=== PATIENT | female | born 1945 | race Caucasian/White ===

== ENCOUNTER 2017-12-30 01:07 | Inpatient (IN) | payer OTHER ==
[~2017-12-30] VITALS: Ht 149.9 cm; Wt 60.0 kg
[2017-12-30] VITALS (26 sets, daily range): BP systolic 0–123; BP diastolic 0–82
[~2017-12-30 01:07] MED LIST: ASPI81CH43 PO; BUDE160A3; BUPR-4 PO; LISI-646 PO; MESA400T; PRO AIR; THYROXINE PO
[2017-12-30] MEDS ORDERED: KETOROLAC TROMETH 30 MG/ML 1ML VIAL IV ONE (02:15)
[2017-12-30] MEDS ORDERED: PANTOPRAZOLE 40 MG/10 ML VIAL IV ONE (02:15)
[2017-12-30 02:40] LABS: Eosinophils # (auto) 0.1 uL; Hemoglobin 15.2 g/dL (12.2-16.2); Lymphocytes # (auto) 0.8 uL; Monocytes # (auto) 0.4 uL; Neutrophils # (auto) 6.4 uL; Nucleated Red Blood Cells % 0.1 %; White Blood Cell 7.7 10^3/uL (4.4-10.8)
[2017-12-30 02:42] LABS: Basophils # (auto) 0 uL; Basophils % (auto) 0.5 % (0.0-2.0); Hematocrit 47.7 % (36.0-46.0); Lymphocytes % (auto) 10.7 % (10.0-50.0); Mean Corpuscular Hemoglobin 33.9 pg (28.0-32.0); Mean Corpuscular Hgb Conc. 31.8 g/dL (32.0-36.0); Mean Corpuscular Volume 106.6 fL (80.0-100.0); Monocytes % (auto) 5.6 % (0.0-12.0); Neutrophils % (auto) 82.2 % (37.0-80.0); Platelet Count (auto) 321 10^3/uL (140-450); Red Blood Cells 4.48 10^6/uL (4.0-5.20); Red Cell Distribution Width 16.2 % (11.8-14.3)
[2017-12-30 02:55] LABS: INR 0.92 (0.9-1.15); Partial Thromboplastin Time 24.3 sec (22.64-33.71)
[2017-12-30 03:01] LABS: Alanine Aminotransferase 34 U/L (13-56); Albumin 2.6 g/dL (3.4-5.0); Amylase 40 U/L (25-115); Anion Gap 8 (5-15); Aspartate Aminotransferase 27 U/L (15-37); BUN/Creatinine Ratio 28.4; Blood Urea Nitrogen 46 mg/dL (7-18); Carbon Dioxide 20 mmol/L (21-32); Chloride 114 mmol/L (98-107); GFR African American 40 mL/min; GFR Non-African American 33 mL/min; Glucose 104 mg/dL (74-106); Lipase 216 U/L (73-393); Magnesium 2.3 mg/dL (1.6-2.6); Potassium 4.9 mmol/L (3.5-5.1); Sodium 142 mmol/L (136-145)
[2017-12-30 03:06] LABS: Alkaline Phosphatase 96 U/L (45-117); Bilirubin, Total 0.4 mg/dL (0.2-1.0); Total Protein 6.7 g/dL (6.4-8.2)
[2017-12-30] MEDS ORDERED: GASTROGRAFIN 30 ML SOL ONE (03:24)
[2017-12-30] MEDS ORDERED: IOHEXOL 300 MG/ML 100ML BOTTLE IJ ONE (03:24)
[2017-12-30] MEDS ORDERED: HYDROmorphone HCL 2 MG/ML VL IV ONE (05:30)
[2017-12-30] MEDS ORDERED: SODIUM CHLORIDE 0.9% 1,000 ML IV SCH ×3 (06:30→17:15)
[2017-12-30] MEDS ORDERED: ACETAMINOPHEN 500 MG TAB PO PRN (06:30)
[2017-12-30] MEDS ORDERED: HYDROcodone-ACET 5/325MG TAB PO PRN (06:30)
[2017-12-30] MEDS ORDERED: LORazepam 2MG/ML-1ML VIAL IV PRN ×2 (06:30→20:30)
[2017-12-30] MEDS: metroNIDAZOLE 500MG/100ML 100 ML IV SCH ×2 (09:47→18:06)
[2017-12-30] MEDS ORDERED: PANTOPRAZOLE 40 MG/10 ML VIAL IV SCH (10:00)
[2017-12-30] MEDS: MORPHINE SULFATE 4 MG/ML SYR/VIAL IV PRN ×2 (11:18→15:22)
[2017-12-30] MEDS ORDERED: LEVOFLOXACIN 250MG 50 ML IV ONE (14:30)
[2017-12-30] MEDS: ONDANSETRON HCL 4 MG/2 ML VIAL IV PRN (14:45)
[2017-12-30] MEDS: ALBUMIN 25% 100 ML IV SCH ×2 (15:16→23:35)
[2017-12-30] MEDS ORDERED: SODIUM CHLORIDE 0.9% 500 ML IV ONE (16:15)
[2017-12-30] MEDS ORDERED: fentaNYL CITRATE 10 ML ONE (17:45)
[2017-12-30] MEDS ORDERED: HYDROmorphone HCL 2 MG/ML VL ONE (17:45)
[2017-12-30] MEDS ORDERED: MIDAZOLAM HCL 1MG/1ML-2 ML VIAL ONE (17:45)
[2017-12-30] MEDS ORDERED: ROCURONIUM 10MG/ML 10ML VIAL IV ONE (17:45)
[2017-12-30] MEDS ORDERED: ETOMIDATE (2MG/ML) 20ML VIAL IV ONE (17:45)
[2017-12-30] MEDS ORDERED: fentaNYL CITRATE 100 MCG/2 ML VL ONE (17:45)
[2017-12-30] MEDS ORDERED: SODIUM CHLORIDE LOCK 30 ML ONE (17:49)
[2017-12-30] MEDS ORDERED: NOREPINEPHRINE 8 MG/250ML KIT 250 ML IV ONE (18:51)
[2017-12-30] MEDS ORDERED: PHENYLEPHRINE HCL 10 MG/ML VL IV ONE (19:07)
[2017-12-30] MEDS ORDERED: SUCCINYLCHOLINE CHLORIDE 20 MG/ML 10ML VIAL IV ONE (19:07)
[2017-12-30] MEDS ORDERED: NEOMYCIN-BACITRACIN-POLYM 15GM TOP OINT TOP ONE (19:34)
[2017-12-30] MEDS ORDERED: CLINDAMYCIN 900MG IV 50 ML IV ONE (19:42)
[2017-12-30 20:06] LABS: Urine Bacteria NONE SEEN /hpf (None Seen); Urine Blood Negative /uL (Negative); Urine Hyaline Cast FEW /lpf (0 - 2); Urine WBC 1 /hpf (0 - 5)
[2017-12-30] MEDS: NOREPINEPHRINE 8 MG/250ML KIT 250 ML IV SCH (20:25)
[2017-12-30] MEDS ORDERED: ALBUTEROL SULF 2.5 MG/0.5ML(0.5%) NEB SOLN NEB PRN (20:30)
[2017-12-30] MEDS ORDERED: D5W/SOD CHL 0.45%/KCL 20MEQ 1,000 ML IV ONE (20:30)
[2017-12-30] MEDS: MIDAZOLAM DRIP 50 mg/50mL 50 ML IV SCH (20:55)
[2017-12-30] MEDS: PANTOPRAZOLE 80 MG in SODIUM CHL 0.9% 60 ML IV SCH (21:53)
[2017-12-30] MEDS: IPRATROPIUM BROM 0.5 MG/2.5ML INH SOL NEB SCH (22:00)
[2017-12-30] MEDS: LINEZOLID 600MG/300ML 300 ML IV SCH (23:33)
[2017-12-31] VITALS (93 sets, daily range): BP systolic 58–145; BP diastolic 31–105
[2017-12-31] MEDS: metroNIDAZOLE 500MG/100ML 100 ML IV SCH ×3 (01:00→15:04)
[2017-12-31] MEDS: ACETAMINOPHEN 650 MG RECT SUPP PR PRN ×2 (01:23→23:47)
[2017-12-31] MEDS: IPRATROPIUM BROM 0.5 MG/2.5ML INH SOL NEB SCH ×3 (02:00→19:16)
[2017-12-31] MEDS ORDERED: SODIUM BICARBONATE 8.4 % INJ 50ML VIAL IV ONE ×2 (02:45→04:30)
[2017-12-31] MEDS: NOREPINEPHRINE 8 MG/250ML KIT 250 ML IV SCH ×2 (02:46→11:48)
[2017-12-31 03:48] LABS: Basophils # (auto) 0 uL; Eosinophils # (auto) 0 uL; Monocytes # (auto) 0.4 uL; Nucleated Red Blood Cells % 0.1 %
[2017-12-31 03:50] LABS: Basophils % (auto) 0.2 % (0.0-2.0); Eosinophils % (auto) 0.3 % (0.0-7.0); Hematocrit 30.7 % (36.0-46.0); Lymphocytes # (auto) 0.6 uL; Lymphocytes % (auto) 7.4 % (10.0-50.0); Mean Corpuscular Hemoglobin 34.5 pg (28.0-32.0); Mean Corpuscular Hgb Conc. 32.7 g/dL (32.0-36.0); Mean Corpuscular Volume 105.4 fL (80.0-100.0); Monocytes % (auto) 5.7 % (0.0-12.0); Neutrophils # (auto) 6.6 uL; Neutrophils % (auto) 86.4 % (37.0-80.0); Platelet Count (auto) 212 10^3/uL (140-450); Red Blood Cells 2.91 10^6/uL (4.0-5.20); Red Cell Distribution Width 15.1 % (11.8-14.3); White Blood Cell 7.6 10^3/uL (4.4-10.8)
[2017-12-31 03:53] LABS: Albumin 2.5 g/dL (3.4-5.0); BUN/Creatinine Ratio 20.2; Calcium 6.2 mg/dL (8.5-10.1); Potassium 4.5 mmol/L (3.5-5.1)
[2017-12-31 03:55] LABS: Bilirubin, Total 0.3 mg/dL (0.2-1.0); Total Protein 4.4 g/dL (6.4-8.2)
[2017-12-31] MEDS: PANTOPRAZOLE 80 MG in SODIUM CHL 0.9% 60 ML IV SCH ×2 (04:37→17:44)
[2017-12-31] MEDS: ALBUMIN 25% 100 ML IV SCH (06:31)
[2017-12-31] MEDS ORDERED: SODIUM CHLORIDE 0.9% 2,000 ML IV ONE (09:30)
[2017-12-31] MEDS ORDERED: PANTOPRAZOLE 40 MG/10 ML VIAL IV SCH (10:00)
[2017-12-31] MEDS ORDERED: LEVOFLOXACIN 250MG 50 ML IV SCH (10:00)
[2017-12-31] MEDS: LEVOFLOXACIN 250MG 50 ML IV SCH (10:32)
[2017-12-31] MEDS: SODIUM CHLORIDE 0.9% 1,000 ML IV SCH ×2 (10:35→19:30)
[2017-12-31] MEDS: LINEZOLID 600MG/300ML 300 ML IV SCH ×2 (12:12→23:02)
[2017-12-31] MEDS: MORPHINE SULFATE 4 MG/ML SYR/VIAL IV PRN ×2 (14:45→21:09)
[2017-12-31 16:58] LABS: Creatinine, Urine 23 mg/dL (30.0-125.0); Sodium Urine 64 mmol/L (40-220)
[2017-12-31 17:23] LABS: Urine Amorphous Crystal FEW /hpf (None Seen); Urine Bacteria NONE SEEN /hpf (None Seen); Urine Blood 1+ /uL (Negative); Urine Hyaline Cast FEW /lpf (0 - 2); Urine Mucus FEW (None Seen); Urine Specific Gravity 1.022 (1.001-1.035); Urine WBC 4 /hpf (0 - 5)
[2017-12-31 18:29] LABS: Red Cell Distribution Width 15.7 % (11.8-14.3); White Blood Cell 8.5 10^3/uL (4.4-10.8)
[2017-12-31 18:32] LABS: Hematocrit 30.7 % (36.0-46.0); Hemoglobin 10.2 g/dL (12.2-16.2); Mean Corpuscular Hemoglobin 34.7 pg (28.0-32.0); Mean Corpuscular Hgb Conc. 33.2 g/dL (32.0-36.0); Mean Corpuscular Volume 104.6 fL (80.0-100.0); Platelet Count (auto) 188 10^3/uL (140-450); Red Blood Cells 2.94 10^6/uL (4.0-5.20)
[2017-12-31 18:36] LABS: INR 2.09 (0.9-1.15); Partial Thromboplastin Time 60.3 sec (22.64-33.71)
[2017-12-31 18:38] LABS: Basophils % (manual) 0 (0.0-2.0); Blast Cells 0; Eosinophils % (manual) 0 (0-7); Metamyelocytes % 0; Myelocytes % 0; Promyelocytes % 0; Reactive Lymphocytes 0
[2017-12-31 18:41] LABS: Albumin 2.1 g/dL (3.4-5.0); Magnesium 1.3 mg/dL (1.6-2.6); Potassium 4.1 mmol/L (3.5-5.1)
[2017-12-31 18:44] LABS: BUN/Creatinine Ratio 21.1
[2017-12-31 18:46] LABS: Bilirubin, Total 0.4 mg/dL (0.2-1.0); Total Protein 3.8 g/dL (6.4-8.2)
[2017-12-31 18:50] LABS: Bilirubin, Direct 0.2 mg/dL (0-0.2)
[2017-12-31 19:06] LABS: Band Neutrophils % (manual) 57; Lymphocytes % (manual) 2 (10.0-50.0); Monocytes % (manual) 4 (0-12)
[2017-12-31] MEDS: ALBUTEROL SULF 2.5 MG/0.5ML(0.5%) NEB SOLN HHN SCH (19:16)
[2017-12-31 19:18] LABS: Calcium 5.4 mg/dL (8.5-10.1)
[2017-12-31] MEDS ORDERED: CALCIUM GLUC 4.65meq/50ml D5AE 50 ML IV ONE ×2 (22:00→23:30)
[2017-12-31] MEDS: MAGNESIUM SULFATE 1GM/100ML 100 ML IV SCH ×2 (23:02→23:31)
[2017-12-31] MEDS: MIDAZOLAM DRIP 50 mg/50mL 50 ML IV SCH (23:52)
[2018-01-01] VITALS (107 sets, daily range): BP systolic 66–160; BP diastolic 36–77
[2018-01-01] MEDS: IPRATROPIUM BROM 0.5 MG/2.5ML INH SOL NEB SCH ×5 (00:20→18:26)
[2018-01-01] MEDS: ALBUTEROL SULF 2.5 MG/0.5ML(0.5%) NEB SOLN HHN SCH ×5 (00:20→18:26)
[2018-01-01] MEDS: MAGNESIUM SULFATE 1GM/100ML 100 ML IV SCH (00:34)
[2018-01-01 02:38] LABS: Basophils # (auto) 0 uL; Eosinophils # (auto) 0 uL; Hemoglobin 10.3 g/dL (12.2-16.2); Lymphocytes # (auto) 0.2 uL; Mean Corpuscular Volume 104.7 fL (80.0-100.0)
[2018-01-01 02:39] LABS: Basophils % (auto) 0.2 % (0.0-2.0); Eosinophils % (auto) 0.2 % (0.0-7.0); Hematocrit 31.3 % (36.0-46.0); Lymphocytes % (auto) 2.4 % (10.0-50.0); Mean Corpuscular Hemoglobin 34.4 pg (28.0-32.0); Mean Corpuscular Hgb Conc. 32.9 g/dL (32.0-36.0); Monocytes # (auto) 0.5 uL; Monocytes % (auto) 4.9 % (0.0-12.0); Neutrophils # (auto) 8.6 uL; Neutrophils % (auto) 92.3 % (37.0-80.0); Nucleated Red Blood Cells % 0.2 %; Platelet Count (auto) 195 10^3/uL (140-450); Red Blood Cells 2.99 10^6/uL (4.0-5.20); Red Cell Distribution Width 15.9 % (11.8-14.3); White Blood Cell 9.3 10^3/uL (4.4-10.8)
[2018-01-01 02:52] LABS: INR 1.65 (0.9-1.15); Partial Thromboplastin Time 58.7 sec (22.64-33.71); Prothrombin Time 18.1 sec (9.37-12.3)
[2018-01-01 03:03] LABS: BUN/Creatinine Ratio 19.9; Bilirubin, Direct 0.1 mg/dL (0-0.2); Bilirubin, Total 0.3 mg/dL (0.2-1.0); Calcium 6.1 mg/dL (8.5-10.1); Magnesium 2.4 mg/dL (1.6-2.6); Potassium 3.9 mmol/L (3.5-5.1); Total Protein 3.8 g/dL (6.4-8.2)
[2018-01-01] MEDS ORDERED: ADENOSINE 6 MG/2 ML INJ IV ONE ×2 (04:43→04:45)
[2018-01-01] MEDS: MORPHINE SULFATE 4 MG/ML SYR/VIAL IV PRN (04:45)
[2018-01-01] MEDS ORDERED: AMIODARONE HCL 900 MG in DEXTROSE 500 ML IV SCH (04:52)
[2018-01-01] MEDS ORDERED: AMIODARONE HCL 150 MG in D5W 5% 100 ML IV ONE (04:52)
[2018-01-01] MEDS ORDERED: AMIODARONE HCL 900 MG IV ONE (04:57)
[2018-01-01] MEDS ORDERED: AMIODARONE HCL (50 MG/ ML) 3 ML VIAL IV ONE (04:57)
[2018-01-01] MEDS: SODIUM CHLORIDE 0.9% 1,000 ML IV SCH (05:31)
[2018-01-01] MEDS: PANTOPRAZOLE 80 MG in SODIUM CHL 0.9% 60 ML IV SCH ×2 (06:41→17:18)
[2018-01-01] MEDS: NOREPINEPHRINE 8 MG/250ML KIT 250 ML IV SCH (06:50)
[2018-01-01] MEDS: metroNIDAZOLE 500MG/100ML 100 ML IV SCH ×3 (08:31→16:05)
[2018-01-01] MEDS: MIDAZOLAM DRIP 50 mg/50mL 50 ML IV SCH (09:22)
[2018-01-01] MEDS: LEVOFLOXACIN 250MG 50 ML IV SCH (09:22)
[2018-01-01] MEDS: LINEZOLID 600MG/300ML 300 ML IV SCH ×2 (10:30→22:10)
[2018-01-01] MEDS ORDERED: DIGOXIN (250MCG/ML) 2 ML AMPULE IV ONE ×2 (10:45→16:00)
[2018-01-01] MEDS: AMIODARONE HCL 900 MG in DEXTROSE 500 ML IV SCH (11:00)
[2018-01-01] MEDS: SOD CHL 0.45% 1,000 ML IV SCH (12:04)
[2018-01-01] MEDS ORDERED: SODIUM CHLORIDE 0.9% 1,000 ML IV ONE (17:00)
[2018-01-01] MEDS ORDERED: ALBUMIN 25% 100 ML IV ONE (17:08)
[2018-01-01] MEDS: ALBUMIN 25% 100 ML IV SCH (17:26)
[2018-01-01 21:00] LABS: Basophils # (auto) 0 uL; Basophils % (auto) 0.4 % (0.0-2.0); Eosinophils # (auto) 0 uL; Eosinophils % (auto) 0.3 % (0.0-7.0); Lymphocytes # (auto) 0.2 uL; Monocytes # (auto) 0.3 uL; Neutrophils # (auto) 7.1 uL; White Blood Cell 7.6 10^3/uL (4.4-10.8)
[2018-01-01 21:01] LABS: Hematocrit 28.1 % (36.0-46.0); Hemoglobin 9.3 g/dL (12.2-16.2); Mean Corpuscular Hemoglobin 34.3 pg (28.0-32.0); Mean Corpuscular Hgb Conc. 33.1 g/dL (32.0-36.0); Mean Corpuscular Volume 103.7 fL (80.0-100.0); Neutrophils % (auto) 92.3 % (37.0-80.0); Platelet Count (auto) 154 10^3/uL (140-450); Red Cell Distribution Width 15.4 % (11.8-14.3)
[2018-01-01 21:10] LABS: Albumin 2.6 g/dL (3.4-5.0); BUN/Creatinine Ratio 17.7; Bilirubin, Direct 0.2 mg/dL (0-0.2); Bilirubin, Total 0.4 mg/dL (0.2-1.0); Calcium 6.1 mg/dL (8.5-10.1); Magnesium 1.9 mg/dL (1.6-2.6); Potassium 3.8 mmol/L (3.5-5.1); Total Protein 4.3 g/dL (6.4-8.2)
[2018-01-01 21:25] LABS: INR 1.41 (0.9-1.15); Partial Thromboplastin Time 69.3 sec (22.64-33.71); Prothrombin Time 15.4 sec (9.37-12.3)
[2018-01-02] VITALS (105 sets, daily range): BP systolic 92–145; BP diastolic 38–84
[2018-01-02] MEDS: MORPHINE SULFATE 4 MG/ML SYR/VIAL IV PRN (00:05)
[2018-01-02] MEDS: metroNIDAZOLE 500MG/100ML 100 ML IV SCH ×3 (00:10→15:59)
[2018-01-02] MEDS: ALBUTEROL SULF 2.5 MG/0.5ML(0.5%) NEB SOLN HHN SCH ×4 (00:50→19:20)
[2018-01-02] MEDS: IPRATROPIUM BROM 0.5 MG/2.5ML INH SOL NEB SCH ×4 (00:50→19:20)
[2018-01-02] MEDS: ALBUMIN 25% 100 ML IV SCH ×2 (01:15→10:40)
[2018-01-02] MEDS: PANTOPRAZOLE 80 MG in SODIUM CHL 0.9% 60 ML IV SCH ×3 (03:00→15:59)
[2018-01-02] MEDS: SOD CHL 0.45% 1,000 ML IV SCH ×3 (05:00→16:45)
[2018-01-02] MEDS: AMIODARONE HCL 900 MG in DEXTROSE 500 ML IV SCH (05:00)
[2018-01-02 05:01] LABS: Hemoglobin 8.2 g/dL (12.2-16.2)
[2018-01-02 05:04] LABS: Hematocrit 24.7 % (36.0-46.0); Mean Corpuscular Hemoglobin 34.6 pg (28.0-32.0); Mean Corpuscular Hgb Conc. 33.3 g/dL (32.0-36.0); Mean Corpuscular Volume 103.7 fL (80.0-100.0); Platelet Count (auto) 125 10^3/uL (140-450); Red Blood Cells 2.38 10^6/uL (4.0-5.20)
[2018-01-02 05:16] LABS: Basophils % (manual) 0 (0.0-2.0); Blast Cells 0; Eosinophils % (manual) 0 (0-7); Metamyelocytes % 0; Myelocytes % 0; Reactive Lymphocytes 0
[2018-01-02 05:20] LABS: Calcium 6.5 mg/dL (8.5-10.1); Potassium 3.6 mmol/L (3.5-5.1)
[2018-01-02 05:22] LABS: BUN/Creatinine Ratio 16.6
[2018-01-02 05:28] LABS: INR 1.45 (0.9-1.15); Prothrombin Time 15.9 sec (9.37-12.3)
[2018-01-02 05:33] LABS: Partial Thromboplastin Time 82.6 sec (22.64-33.71)
[2018-01-02 05:50] LABS: Band Neutrophils % (manual) 6; Lymphocytes % (manual) 2 (10.0-50.0); Monocytes % (manual) 2 (0-12); Promyelocytes % 1
[2018-01-02] MEDS ORDERED: FUROSEMIDE 100 MG/10ML VIAL IV ONE (07:30)
[2018-01-02] MEDS ORDERED: FUROSEMIDE 20 MG/2 ML VIAL IV ONE (07:30)
[2018-01-02] MEDS: LEVOFLOXACIN 250MG 50 ML IV SCH (09:11)
[2018-01-02] MEDS: LINEZOLID 600MG/300ML 300 ML IV SCH ×2 (10:38→22:30)
[2018-01-02 13:54] LABS: Bilirubin, Direct 0.3 mg/dL (0-0.2)
[2018-01-02 14:08] LABS: Albumin 3.1 g/dL (3.4-5.0); Bilirubin, Total 0.5 mg/dL (0.2-1.0); Total Protein 4.7 g/dL (6.4-8.2)
[2018-01-02] MEDS: NOREPINEPHRINE 8 MG/250ML KIT 250 ML IV SCH (14:41)
[2018-01-02 17:10] LABS: Basophils # (auto) 0 uL; Eosinophils # (auto) 0 uL; Eosinophils % (auto) 0.3 % (0.0-7.0); Lymphocytes # (auto) 0.1 uL; Lymphocytes % (auto) 1.8 % (10.0-50.0); Monocytes # (auto) 0.3 uL
[2018-01-02 17:12] LABS: Basophils % (auto) 0.2 % (0.0-2.0); Hematocrit 23.7 % (36.0-46.0); Hemoglobin 8.1 g/dL (12.2-16.2); Mean Corpuscular Hemoglobin 34.9 pg (28.0-32.0); Mean Corpuscular Hgb Conc. 34.1 g/dL (32.0-36.0); Mean Corpuscular Volume 102.3 fL (80.0-100.0); Monocytes % (auto) 3.5 % (0.0-12.0); Neutrophils % (auto) 94.2 % (37.0-80.0); Platelet Count (auto) 116 10^3/uL (140-450); Red Blood Cells 2.32 10^6/uL (4.0-5.20); White Blood Cell 7.4 10^3/uL (4.4-10.8)
[2018-01-02] MEDS: SODIUM BICARBONATE 50ML VIAL 100 ML in D5W 5% 1,000 ML IV SCH (17:15)
[2018-01-02 17:33] LABS: INR 1.49 (0.9-1.15); Prothrombin Time 16.3 sec (9.37-12.3)
[2018-01-02 17:51] LABS: Partial Thromboplastin Time 76.3 sec (22.64-33.71)
[2018-01-02 18:36] LABS: Albumin 3.2 g/dL (3.4-5.0); BUN/Creatinine Ratio 16.1; Bilirubin, Direct 0.4 mg/dL (0-0.2); Bilirubin, Total 0.7 mg/dL (0.2-1.0); Calcium 6.4 mg/dL (8.5-10.1); Magnesium 1.7 mg/dL (1.6-2.6); Potassium 3.3 mmol/L (3.5-5.1); Total Protein 4.6 g/dL (6.4-8.2)
[2018-01-02 19:30] LABS: Fibrinogen 376.1 mg/dL (177-375)
[2018-01-02] MEDS: MIDAZOLAM DRIP 50 mg/50mL 50 ML IV SCH (20:55)
[2018-01-02] MEDS ORDERED: POTASSIUM CHL 20MEQ/100ML 100 ML IV ONE (21:15)
[2018-01-03] VITALS (77 sets, daily range): BP systolic 0–157; BP diastolic 0–87
[2018-01-03] MEDS: ALBUTEROL SULF 2.5 MG/0.5ML(0.5%) NEB SOLN HHN SCH ×4 (00:22→18:54)
[2018-01-03] MEDS: IPRATROPIUM BROM 0.5 MG/2.5ML INH SOL NEB SCH ×4 (00:22→18:54)
[2018-01-03] MEDS: MORPHINE SULFATE 8mg/ml INJ SDV IV PRN ×2 (02:00→15:54)
[2018-01-03] MEDS: SODIUM BICARBONATE 50ML VIAL 100 ML in D5W 5% 1,000 ML IV SCH (03:00)
[2018-01-03] MEDS: PANTOPRAZOLE 80 MG in SODIUM CHL 0.9% 60 ML IV SCH (04:30)
[2018-01-03 05:35] LABS: Basophils # (auto) 0 uL; Eosinophils # (auto) 0 uL; Eosinophils % (auto) 0.4 % (0.0-7.0); Hemoglobin 8.4 g/dL (12.2-16.2); Mean Corpuscular Hemoglobin 34.7 pg (28.0-32.0); Monocytes # (auto) 0.4 uL; Neutrophils # (auto) 8.2 uL; Nucleated Red Blood Cells % 0.1 %
[2018-01-03 05:36] LABS: Hematocrit 24.5 % (36.0-46.0); Lymphocytes # (auto) 0.1 uL; Lymphocytes % (auto) 1.6 % (10.0-50.0); Mean Corpuscular Hgb Conc. 34.3 g/dL (32.0-36.0); Mean Corpuscular Volume 101.2 fL (80.0-100.0); Monocytes % (auto) 4.2 % (0.0-12.0); Neutrophils % (auto) 93.8 % (37.0-80.0); Platelet Count (auto) 118 10^3/uL (140-450); Red Blood Cells 2.42 10^6/uL (4.0-5.20); White Blood Cell 8.7 10^3/uL (4.4-10.8)
[2018-01-03 05:44] LABS: INR 1.5 (0.9-1.15); Partial Thromboplastin Time 68.1 sec (22.64-33.71); Prothrombin Time 16.4 sec (9.37-12.3)
[2018-01-03 05:59] LABS: Albumin 2.6 g/dL (3.4-5.0); BUN/Creatinine Ratio 14.6; Bilirubin, Direct 0.4 mg/dL (0-0.2); Bilirubin, Total 0.8 mg/dL (0.2-1.0); Calcium 6.5 mg/dL (8.5-10.1); Magnesium 1.8 mg/dL (1.6-2.6); Total Protein 4.1 g/dL (6.4-8.2)
[2018-01-03] MEDS: POTASSIUM CHL 20MEQ/100ML 100 ML IV SCH ×2 (06:33→08:53)
[2018-01-03] MEDS: metroNIDAZOLE 500MG/100ML 100 ML IV SCH ×4 (08:53→23:51)
[2018-01-03] MEDS: LEVOFLOXACIN 250MG 50 ML IV SCH (09:22)
[2018-01-03] MEDS: LINEZOLID 600MG/300ML 300 ML IV SCH ×2 (10:34→22:14)
[2018-01-03] MEDS: SODIUM BICARBONATE 50ML VIAL 50 ML in SOD CHL 0.45% 1,000 ML IV SCH ×2 (13:25→23:17)
[2018-01-03] MEDS: NOREPINEPHRINE 8 MG/250ML KIT 250 ML IV SCH (14:41)
[2018-01-03] MEDS: MIDAZOLAM DRIP 50 mg/50mL 50 ML IV SCH (20:55)
[2018-01-03] MEDS: PANTOPRAZOLE 40 MG/10 ML VIAL IV SCH (22:14)
[2018-01-04] VITALS (60 sets, daily range): BP systolic 115–161; BP diastolic 49–87
[2018-01-04] MEDS: ALBUTEROL SULF 2.5 MG/0.5ML(0.5%) NEB SOLN HHN SCH ×4 (00:11→18:11)
[2018-01-04] MEDS: IPRATROPIUM BROM 0.5 MG/2.5ML INH SOL NEB SCH ×4 (00:11→18:11)
[2018-01-04 04:34] LABS: Hematocrit 29.4 % (36.0-46.0); Hemoglobin 9.9 g/dL (12.2-16.2); Mean Corpuscular Hemoglobin 33.8 pg (28.0-32.0); Mean Corpuscular Hgb Conc. 33.7 g/dL (32.0-36.0); Mean Corpuscular Volume 100.2 fL (80.0-100.0); Platelet Count (auto) 122 10^3/uL (140-450); Red Blood Cells 2.94 10^6/uL (4.0-5.20); Red Cell Distribution Width 14.8 % (11.8-14.3); White Blood Cell 7.7 10^3/uL (4.4-10.8)
[2018-01-04 04:37] LABS: Basophils % (manual) 0 (0.0-2.0); Blast Cells 0; Eosinophils % (manual) 0 (0-7); Metamyelocytes % 0; Myelocytes % 0; Promyelocytes % 0; Reactive Lymphocytes 0
[2018-01-04 04:40] LABS: INR 1.36 (0.9-1.15); Partial Thromboplastin Time 39.4 sec (23.78-33.04); Prothrombin Time 14.3 sec (9.27-12.13)
[2018-01-04 04:43] LABS: BUN/Creatinine Ratio 15.2; Calcium 6.8 mg/dL (8.5-10.1); Potassium 3.4 mmol/L (3.5-5.1)
[2018-01-04 04:54] LABS: Magnesium 1.6 mg/dL (1.6-2.6); Phosphorus 1.3 mg/dL (2.5-4.90)
[2018-01-04 05:23] LABS: Band Neutrophils % (manual) 5
[2018-01-04 05:24] LABS: Lymphocytes % (manual) 6 (10.0-50.0); Monocytes % (manual) 1 (0-12)
[2018-01-04] MEDS ORDERED: POTASSIUM CHL 20MEQ/100ML 100 ML IV ONE ×2 (05:45→09:15)
[2018-01-04] MEDS: metroNIDAZOLE 500MG/100ML 100 ML IV SCH ×3 (08:14→23:29)
[2018-01-04] MEDS: MORPHINE SULFATE 8mg/ml INJ SDV IV PRN ×3 (08:14→23:29)
[2018-01-04] MEDS: LEVOFLOXACIN 250MG 50 ML IV SCH (09:52)
[2018-01-04] MEDS: PANTOPRAZOLE 40 MG/10 ML VIAL IV SCH ×2 (09:57→22:04)
[2018-01-04] MEDS: SODIUM BICARBONATE 50ML VIAL 50 ML in SOD CHL 0.45% 1,000 ML IV SCH (10:50)
[2018-01-04] MEDS: LINEZOLID 600MG/300ML 300 ML IV SCH ×2 (10:51→22:04)
[2018-01-04] MEDS ORDERED: CALCIUM GLUC 4.65meq/50ml D5AE 50 ML IV ONE (11:30)
[2018-01-04] MEDS ORDERED: POTASSIUM PHOSPHATE 44 MEQ in D5W 5% 250 ML IV ONE (11:30)
[2018-01-04] MEDS: SODIUM BICARBONATE 50ML VIAL 50 ML in D5W/SOD CHL 0.45%/KCL 20MEQ 1,000 ML IV SCH ×3 (12:10→23:30)
[2018-01-04] MEDS: FUROSEMIDE 40 MG/4 ML VIAL IV SCH (12:28)
[2018-01-04] MEDS: CALCIUM GLUC 4.65meq/50ml D5AE 50 ML IV SCH ×2 (12:35→14:04)
[2018-01-04] MEDS: NOREPINEPHRINE 8 MG/250ML KIT 250 ML IV SCH (14:41)
[2018-01-04] MEDS: MIDAZOLAM DRIP 50 mg/50mL 50 ML IV SCH (20:55)
[2018-01-05] VITALS (101 sets, daily range): BP systolic 92–136; BP diastolic 33–78
[2018-01-05] MEDS: IPRATROPIUM BROM 0.5 MG/2.5ML INH SOL NEB SCH ×4 (00:32→18:47)
[2018-01-05] MEDS: ALBUTEROL SULF 2.5 MG/0.5ML(0.5%) NEB SOLN HHN SCH ×4 (00:33→18:47)
[2018-01-05] MEDS: METOPROLOL TARTRATE 1MG/1ML-5ML VIAL IV PRN ×3 (02:38→16:39)
[2018-01-05] MEDS: MORPHINE SULFATE 8mg/ml INJ SDV IV PRN ×4 (03:51→21:58)
[2018-01-05 04:22] LABS: Basophils # (auto) 0 uL; Eosinophils # (auto) 0.1 uL; Hemoglobin 10.1 g/dL (12.2-16.2); Lymphocytes # (auto) 0.3 uL; Monocytes # (auto) 0.6 uL; Nucleated Red Blood Cells % 0.2 %
[2018-01-05 04:24] LABS: Basophils % (auto) 0.2 % (0.0-2.0); Hematocrit 29.5 % (36.0-46.0); Lymphocytes % (auto) 3.8 % (10.0-50.0); Mean Corpuscular Hemoglobin 34.4 pg (28.0-32.0); Mean Corpuscular Hgb Conc. 34.4 g/dL (32.0-36.0); Mean Corpuscular Volume 100.1 fL (80.0-100.0); Monocytes % (auto) 8.6 % (0.0-12.0); Neutrophils # (auto) 6.5 uL; Neutrophils % (auto) 86.4 % (37.0-80.0); Platelet Count (auto) 119 10^3/uL (140-450); Red Blood Cells 2.95 10^6/uL (4.0-5.20); White Blood Cell 7.5 10^3/uL (4.4-10.8)
[2018-01-05 04:35] LABS: Magnesium 1.5 mg/dL (1.6-2.6); Phosphorus 3.3 mg/dL (2.5-4.90); Potassium 4.4 mmol/L (3.5-5.1)
[2018-01-05] MEDS: metroNIDAZOLE 500MG/100ML 100 ML IV SCH ×2 (09:10→18:10)
[2018-01-05] MEDS: PANTOPRAZOLE 40 MG/10 ML VIAL IV SCH ×2 (10:02→21:58)
[2018-01-05] MEDS: FUROSEMIDE 40 MG/4 ML VIAL IV SCH (10:02)
[2018-01-05] MEDS: LEVOFLOXACIN 250MG 50 ML IV SCH (10:15)
[2018-01-05] MEDS ORDERED: MAGNESIUM SULFATE 1GM/100ML 100 ML IV SCH (12:00)
[2018-01-05] MEDS: MAGNESIUM SULFATE 1GM/100ML 100 ML IV SCH ×3 (13:21→15:51)
[2018-01-05] MEDS: NOREPINEPHRINE 8 MG/250ML KIT 250 ML IV SCH (14:41)
[2018-01-05] MEDS: LINEZOLID 600MG/300ML 300 ML IV SCH ×2 (15:07→22:01)
[2018-01-05] MEDS: MIDAZOLAM DRIP 50 mg/50mL 50 ML IV SCH (20:55)
[2018-01-05] MEDS: ONDANSETRON HCL 4 MG/2 ML VIAL IV PRN (21:58)
[2018-01-05] MEDS: SODIUM BICARBONATE 50ML VIAL 50 ML in D5W/SOD CHL 0.45%/KCL 20MEQ 1,000 ML IV SCH (22:01)
[2018-01-06] VITALS (81 sets, daily range): BP systolic 101–154; BP diastolic 45–72
[2018-01-06] MEDS: IPRATROPIUM BROM 0.5 MG/2.5ML INH SOL NEB SCH ×4 (00:24→18:23)
[2018-01-06] MEDS: ALBUTEROL SULF 2.5 MG/0.5ML(0.5%) NEB SOLN HHN SCH ×4 (00:24→18:23)
[2018-01-06] MEDS: metroNIDAZOLE 500MG/100ML 100 ML IV SCH ×4 (00:27→23:57)
[2018-01-06 03:56] LABS: Basophils # (auto) 0 uL; Basophils % (auto) 0.2 % (0.0-2.0); Eosinophils # (auto) 0.1 uL; Lymphocytes # (auto) 0.4 uL; Monocytes # (auto) 0.7 uL; Platelet Count (auto) 107 10^3/uL (140-450); Red Blood Cells 2.94 10^6/uL (4.0-5.20)
[2018-01-06 03:58] LABS: Eosinophils % (auto) 0.9 % (0.0-7.0); Hematocrit 29.4 % (36.0-46.0); Lymphocytes % (auto) 5.1 % (10.0-50.0); Mean Corpuscular Hgb Conc. 34.1 g/dL (32.0-36.0); Mean Corpuscular Volume 99.9 fL (80.0-100.0); Monocytes % (auto) 8.8 % (0.0-12.0); Neutrophils # (auto) 6.4 uL; Red Cell Distribution Width 14.6 % (11.8-14.3); White Blood Cell 7.5 10^3/uL (4.4-10.8)
[2018-01-06 04:12] LABS: Potassium 4.3 mmol/L (3.5-5.1)
[2018-01-06 04:16] LABS: BUN/Creatinine Ratio 14.9; Calcium 7.2 mg/dL (8.5-10.1); Magnesium 1.8 mg/dL (1.6-2.6)
[2018-01-06] MEDS: SODIUM BICARBONATE 50ML VIAL 50 ML in D5W/SOD CHL 0.45%/KCL 20MEQ 1,000 ML IV SCH ×3 (06:00→18:02)
[2018-01-06] MEDS: MORPHINE SULFATE 8mg/ml INJ SDV IV PRN ×3 (06:01→16:49)
[2018-01-06] MEDS: LEVOFLOXACIN 250MG 50 ML IV SCH (08:34)
[2018-01-06] MEDS ORDERED: GASTROGRAFIN 30 ML SOL ONE ×2 (09:31→10:42)
[2018-01-06] MEDS: FUROSEMIDE 40 MG/4 ML VIAL IV SCH ×3 (10:31→17:49)
[2018-01-06] MEDS: PANTOPRAZOLE 40 MG/10 ML VIAL IV SCH ×2 (10:31→22:07)
[2018-01-06] MEDS: LINEZOLID 600MG/300ML 300 ML IV SCH (10:31)
[2018-01-06] MEDS: POTASSIUM CHL 20MEQ/100ML 100 ML IV SCH ×2 (12:31→15:00)
[2018-01-06] MEDS: NOREPINEPHRINE 8 MG/250ML KIT 250 ML IV SCH (14:41)
[2018-01-07] VITALS (85 sets, daily range): BP systolic 90–161; BP diastolic 31–91
[2018-01-07] MEDS: ALBUTEROL SULF 2.5 MG/0.5ML(0.5%) NEB SOLN HHN SCH ×3 (00:02→18:16)
[2018-01-07] MEDS: IPRATROPIUM BROM 0.5 MG/2.5ML INH SOL NEB SCH ×3 (00:02→18:16)
[2018-01-07] MEDS: MORPHINE SULFATE 8mg/ml INJ SDV IV PRN ×2 (01:05→08:47)
[2018-01-07] MEDS: ONDANSETRON HCL 4 MG/2 ML VIAL IV PRN (01:05)
[2018-01-07 04:10] LABS: Basophils # (auto) 0 uL; Eosinophils # (auto) 0 uL; Eosinophils % (auto) 0.5 % (0.0-7.0); Lymphocytes # (auto) 0.4 uL; Lymphocytes % (auto) 4.5 % (10.0-50.0); Monocytes # (auto) 0.6 uL; Neutrophils # (auto) 7.1 uL; Red Cell Distribution Width 14.4 % (11.8-14.3); White Blood Cell 8.1 10^3/uL (4.4-10.8)
[2018-01-07 04:13] LABS: Basophils % (auto) 0.1 % (0.0-2.0); Hematocrit 30.2 % (36.0-46.0); Hemoglobin 10.3 g/dL (12.2-16.2); Mean Corpuscular Hemoglobin 34.6 pg (28.0-32.0); Mean Corpuscular Hgb Conc. 34.2 g/dL (32.0-36.0); Mean Corpuscular Volume 100.9 fL (80.0-100.0); Monocytes % (auto) 7.2 % (0.0-12.0); Neutrophils % (auto) 87.7 % (37.0-80.0); Platelet Count (auto) 91 10^3/uL (140-450); Red Blood Cells 2.99 10^6/uL (4.0-5.20)
[2018-01-07 04:21] LABS: Albumin 1.8 g/dL (3.4-5.0); BUN/Creatinine Ratio 14.3; Bilirubin, Total 0.5 mg/dL (0.2-1.0); Calcium 7.3 mg/dL (8.5-10.1); Magnesium 1.7 mg/dL (1.6-2.6); Phosphorus 1.9 mg/dL (2.5-4.90); Potassium 4.7 mmol/L (3.5-5.1); Total Protein 3.8 g/dL (6.4-8.2)
[2018-01-07] MEDS: FUROSEMIDE 40 MG/4 ML VIAL IV SCH ×2 (06:28→18:13)
[2018-01-07] MEDS: SODIUM BICARBONATE 50ML VIAL 50 ML in D5W/SOD CHL 0.45%/KCL 20MEQ 1,000 ML IV SCH (07:41)
[2018-01-07] MEDS: metroNIDAZOLE 500MG/100ML 100 ML IV SCH ×3 (08:05→23:43)
[2018-01-07] MEDS: MIDAZOLAM DRIP 50 mg/50mL 50 ML IV SCH (08:05)
[2018-01-07] MEDS: LEVOFLOXACIN 250MG 50 ML IV SCH (08:47)
[2018-01-07] MEDS: PANTOPRAZOLE 40 MG/10 ML VIAL IV SCH ×2 (10:09→21:48)
[2018-01-07] MEDS ORDERED: SODIUM PHOSPHATES 40 MEQ in D5W 5% 250 ML IV ONE (11:30)
[2018-01-07] MEDS: MAGNESIUM SULFATE 1GM/100ML 100 ML IV SCH ×2 (12:43→14:55)
[2018-01-07] MEDS: NOREPINEPHRINE 8 MG/250ML KIT 250 ML IV SCH (14:41)
[2018-01-07] MEDS ORDERED: LIDOCAINE 1% (LOCAL ANESTH.) PF 5ml SDV ONE (15:05)
[2018-01-07] MEDS ORDERED: LIDOCAINE HCL 1 % PF INJ 2ML AMP IJ ONE (15:15)
[2018-01-07] MEDS ORDERED: LIDOCAINE 1% (LOCAL ANESTH.) PF 5ml SDV IJ ONE (15:30)
[2018-01-07] MEDS: methylPREDNISolone SOD SUCC 40 MG/ML VL IV SCH (21:48)
[2018-01-08] VITALS (95 sets, daily range): BP systolic 91–140; BP diastolic 39–126
[2018-01-08] MEDS: ALBUTEROL SULF 2.5 MG/0.5ML(0.5%) NEB SOLN HHN SCH ×4 (00:18→18:30)
[2018-01-08] MEDS: IPRATROPIUM BROM 0.5 MG/2.5ML INH SOL NEB SCH ×4 (00:19→18:30)
[2018-01-08 03:28] LABS: Hematocrit 30.6 % (36.0-46.0); Hemoglobin 10.5 g/dL (12.2-16.2); Mean Corpuscular Hgb Conc. 34.2 g/dL (32.0-36.0); Mean Corpuscular Volume 99.6 fL (80.0-100.0); Platelet Count (auto) 116 10^3/uL (140-450); Red Blood Cells 3.08 10^6/uL (4.0-5.20); Red Cell Distribution Width 14.3 % (11.8-14.3); White Blood Cell 9.5 10^3/uL (4.4-10.8)
[2018-01-08 03:45] LABS: Basophils % (manual) 0 (0.0-2.0); Blast Cells 0; Eosinophils % (manual) 0 (0-7); Metamyelocytes % 0; Myelocytes % 0; Promyelocytes % 0; Reactive Lymphocytes 0
[2018-01-08 03:47] LABS: BUN/Creatinine Ratio 15.4; Calcium 7.6 mg/dL (8.5-10.1); Magnesium 2.1 mg/dL (1.6-2.6); Potassium 4.7 mmol/L (3.5-5.1)
[2018-01-08 04:06] LABS: Band Neutrophils % (manual) 4; Lymphocytes % (manual) 2 (10.0-50.0); Monocytes % (manual) 3 (0-12)
[2018-01-08] MEDS: FUROSEMIDE 40 MG/4 ML VIAL IV SCH ×2 (06:13→17:58)
[2018-01-08] MEDS: metroNIDAZOLE 500MG/100ML 100 ML IV SCH ×2 (08:03→16:16)
[2018-01-08] MEDS: LEVOFLOXACIN 250MG 50 ML IV SCH (08:42)
[2018-01-08] MEDS: MORPHINE SULFATE 8mg/ml INJ SDV IV PRN (09:41)
[2018-01-08] MEDS: PANTOPRAZOLE 40 MG/10 ML VIAL IV SCH ×2 (10:20→21:37)
[2018-01-08] MEDS: methylPREDNISolone SOD SUCC 40 MG/ML VL IV SCH ×2 (10:20→21:38)
[2018-01-08] MEDS: NOREPINEPHRINE 8 MG/250ML KIT 250 ML IV SCH (16:16)
[2018-01-08] MEDS ORDERED: prednisoLONE ACETATE 1% OPTH SUSP 5ML LEFTEYE SCH (22:00)
[2018-01-09] VITALS (61 sets, daily range): BP systolic 93–144; BP diastolic 33–99
[2018-01-09] MEDS: IPRATROPIUM BROM 0.5 MG/2.5ML INH SOL NEB SCH ×4 (00:27→19:25)
[2018-01-09] MEDS: ALBUTEROL SULF 2.5 MG/0.5ML(0.5%) NEB SOLN HHN SCH ×4 (00:27→19:25)
[2018-01-09 04:03] LABS: Hematocrit 28.4 % (36.0-46.0); Hemoglobin 9.6 g/dL (12.2-16.2); Mean Corpuscular Hemoglobin 33.5 pg (28.0-32.0); Mean Corpuscular Hgb Conc. 33.7 g/dL (32.0-36.0); Mean Corpuscular Volume 99.4 fL (80.0-100.0); Platelet Count (auto) 108 10^3/uL (140-450); Red Blood Cells 2.86 10^6/uL (4.0-5.20); Red Cell Distribution Width 14.4 % (11.8-14.3); White Blood Cell 8.8 10^3/uL (4.4-10.8)
[2018-01-09 04:12] LABS: BUN/Creatinine Ratio 20.2; Calcium 7.7 mg/dL (8.5-10.1); Magnesium 2.1 mg/dL (1.6-2.6); Phosphorus 4.4 mg/dL (2.5-4.90); Potassium 4.6 mmol/L (3.5-5.1)
[2018-01-09 04:26] LABS: Basophils % (manual) 0 (0.0-2.0); Blast Cells 0; Eosinophils % (manual) 0 (0-7); Lymphocytes % (manual) 0 (10.0-50.0); Metamyelocytes % 0; Myelocytes % 0; Promyelocytes % 0; Reactive Lymphocytes 0
[2018-01-09 04:52] LABS: Band Neutrophils % (manual) 5; Monocytes % (manual) 1 (0-12)
[2018-01-09] MEDS: FUROSEMIDE 40 MG/4 ML VIAL IV SCH (06:00)
[2018-01-09] MEDS: MORPHINE SULFATE 8mg/ml INJ SDV IV PRN ×2 (08:12→16:26)
[2018-01-09] MEDS: metroNIDAZOLE 500MG/100ML 100 ML IV SCH ×4 (08:12→23:52)
[2018-01-09] MEDS: LEVOFLOXACIN 250MG 50 ML IV SCH (10:02)
[2018-01-09] MEDS: methylPREDNISolone SOD SUCC 40 MG/ML VL IV SCH ×2 (10:02→22:00)
[2018-01-09] MEDS: PANTOPRAZOLE 40 MG/10 ML VIAL IV SCH ×2 (10:02→22:00)
[2018-01-09] MEDS ORDERED: TPN PER PHARMACY 0 ML IV SCH (10:30)
[2018-01-09] MEDS ORDERED: DEXTROSE (50%) 50ML SYRG IV SCH (12:15)
[2018-01-09 13:02] LABS: Albumin 1.8 g/dL (3.4-5.0); Pre Albumin 21.2 mg/dL (20.0-40.0)
[2018-01-09] MEDS: SODIUM CHLORIDE 0.9% 1,000 ML IV SCH (15:41)
[2018-01-09] MEDS: NOREPINEPHRINE 8 MG/250ML KIT 250 ML IV SCH (15:41)
[2018-01-09] MEDS: TPN PER PHARMACY IV NR ×8 (20:00)
[2018-01-09] MEDS: ACCU-CHEK COMFORT CURVE STRIP VI SCH (23:53)
[2018-01-09] MEDS: InsuLIN REG 1unit/0.01ml Soln (100units/ml) SC SCH (23:53)
[2018-01-10] VITALS (39 sets, daily range): BP systolic 69–129; BP diastolic 35–72
[2018-01-10] MEDS: ALBUTEROL SULF 2.5 MG/0.5ML(0.5%) NEB SOLN HHN SCH ×4 (00:02→18:52)
[2018-01-10] MEDS: IPRATROPIUM BROM 0.5 MG/2.5ML INH SOL NEB SCH ×4 (00:02→18:52)
[2018-01-10 04:39] LABS: Basophils # (auto) 0 uL; Eosinophils # (auto) 0 uL; Hematocrit 25.5 % (36.0-46.0); Hemoglobin 8.7 g/dL (12.2-16.2); Lymphocytes # (auto) 0.3 uL; Mean Corpuscular Hemoglobin 34.3 pg (28.0-32.0); Nucleated Red Blood Cells % 0.1 %; Red Blood Cells 2.54 10^6/uL (4.0-5.20)
[2018-01-10 04:41] LABS: Basophils % (auto) 0.1 % (0.0-2.0); Lymphocytes % (auto) 2.6 % (10.0-50.0); Mean Corpuscular Hgb Conc. 34.1 g/dL (32.0-36.0); Mean Corpuscular Volume 100.5 fL (80.0-100.0); Monocytes # (auto) 0.3 uL; Monocytes % (auto) 2.5 % (0.0-12.0); Neutrophils # (auto) 10.3 uL; Neutrophils % (auto) 94.8 % (37.0-80.0); White Blood Cell 10.8 10^3/uL (4.4-10.8)
[2018-01-10 04:45] LABS: Platelet Count (auto) 97 10^3/uL (140-450)
[2018-01-10 04:58] LABS: Albumin 1.7 g/dL (3.4-5.0); Bilirubin, Total 0.4 mg/dL (0.2-1.0); Calcium 7.1 mg/dL (8.5-10.1); Magnesium 2.2 mg/dL (1.6-2.6); Phosphorus 3.7 mg/dL (2.5-4.90); Potassium 3.8 mmol/L (3.5-5.1); Total Protein 3.6 g/dL (6.4-8.2)
[2018-01-10] MEDS: InsuLIN REG 1unit/0.01ml Soln (100units/ml) SC SCH ×4 (06:00→23:43)
[2018-01-10] MEDS: ACCU-CHEK COMFORT CURVE STRIP VI SCH ×4 (06:00→23:43)
[2018-01-10] MEDS: SODIUM CHLORIDE 0.9% 1,000 ML IV SCH (08:08)
[2018-01-10] MEDS: TPN PER PHARMACY IV NR ×8 (08:30)
[2018-01-10] MEDS: metroNIDAZOLE 500MG/100ML 100 ML IV SCH ×3 (09:11→23:34)
[2018-01-10] MEDS: methylPREDNISolone SOD SUCC 40 MG/ML VL IV SCH ×2 (09:47→21:19)
[2018-01-10] MEDS: PANTOPRAZOLE 40 MG/10 ML VIAL IV SCH ×2 (09:47→21:19)
[2018-01-10] MEDS: LEVOFLOXACIN 250MG 50 ML IV SCH (09:47)
[2018-01-10] MEDS: BUDESONIDE (INHALATION) 0.5 MG/2 ML NEB NEB SCH ×2 (11:46→18:52)
[2018-01-10] MEDS: MORPHINE SULFATE 8mg/ml INJ SDV IV PRN ×2 (12:30→20:00)
[2018-01-10] MEDS: NOREPINEPHRINE 8 MG/250ML KIT 250 ML IV SCH (13:56)
[2018-01-10] MEDS ORDERED: SODIUM CHLORIDE 0.9% 1,000 ML IV SCH (20:00)
[2018-01-10] MEDS ORDERED: TPN PER PHARMACY IV NR ×10 (20:00)
[2018-01-11] VITALS (96 sets, daily range): BP systolic 75–142; BP diastolic 28–106
[2018-01-11] MEDS: IPRATROPIUM BROM 0.5 MG/2.5ML INH SOL NEB SCH ×4 (00:02→18:40)
[2018-01-11] MEDS: ALBUTEROL SULF 2.5 MG/0.5ML(0.5%) NEB SOLN HHN SCH ×4 (00:02→18:40)
[2018-01-11] MEDS: MORPHINE SULFATE 8mg/ml INJ SDV IV PRN (00:51)
[2018-01-11 04:36] LABS: Albumin 1.7 g/dL (3.4-5.0); BUN/Creatinine Ratio 33.9; Bilirubin, Total 0.2 mg/dL (0.2-1.0); Calcium 6.8 mg/dL (8.5-10.1); Magnesium 2.1 mg/dL (1.6-2.6); Phosphorus 2.7 mg/dL (2.5-4.90); Potassium 3.8 mmol/L (3.5-5.1); Pre Albumin 23.5 mg/dL (20.0-40.0); Total Protein 3.8 g/dL (6.4-8.2)
[2018-01-11] MEDS: InsuLIN REG 1unit/0.01ml Soln (100units/ml) SC SCH ×3 (05:23→17:47)
[2018-01-11] MEDS: ACCU-CHEK COMFORT CURVE STRIP VI SCH ×3 (05:23→17:46)
[2018-01-11] MEDS: BUDESONIDE (INHALATION) 0.5 MG/2 ML NEB NEB SCH ×2 (06:21→22:00)
[2018-01-11] MEDS: metroNIDAZOLE 500MG/100ML 100 ML IV SCH ×2 (08:41→16:02)
[2018-01-11] MEDS: LEVOFLOXACIN 250MG 50 ML IV SCH (08:41)
[2018-01-11] MEDS: PANTOPRAZOLE 40 MG/10 ML VIAL IV SCH ×2 (09:32→22:14)
[2018-01-11] MEDS: methylPREDNISolone SOD SUCC 40 MG/ML VL IV SCH ×2 (09:32→22:14)
[2018-01-11] MEDS: SODIUM CHLORIDE 0.9% 1,000 ML IV SCH (12:42)
[2018-01-11] MEDS: NOREPINEPHRINE 8 MG/250ML KIT 250 ML IV SCH ×2 (14:41→20:17)
[2018-01-11] MEDS ORDERED: FAT EMULSION IV NR ×9 (20:00)
[2018-01-11] MEDS ORDERED: POTASSIUM ACETATE IV NR ×9 (20:00)
[2018-01-11] MEDS ORDERED: [UNRECOGNIZED DRUG - OTHER] IV NR ×9 (20:00)
[2018-01-11] MEDS ORDERED: SODIUM PHOSPHATES IV NR ×9 (20:00)
[2018-01-12] VITALS (106 sets, daily range): BP systolic 73–139; BP diastolic 28–85
[2018-01-12] MEDS: metroNIDAZOLE 500MG/100ML 100 ML IV SCH ×3 (00:07→16:00)
[2018-01-12] MEDS: ACCU-CHEK COMFORT CURVE STRIP VI SCH ×4 (00:10→18:26)
[2018-01-12] MEDS: IPRATROPIUM BROM 0.5 MG/2.5ML INH SOL NEB SCH ×4 (00:16→18:47)
[2018-01-12] MEDS: ALBUTEROL SULF 2.5 MG/0.5ML(0.5%) NEB SOLN HHN SCH ×4 (00:16→18:47)
[2018-01-12 04:10] LABS: Basophils # (auto) 0 uL; Basophils % (auto) 0.1 % (0.0-2.0); Eosinophils # (auto) 0 uL; Hemoglobin 8.9 g/dL (12.2-16.2); Lymphocytes # (auto) 0.2 uL; Lymphocytes % (auto) 1.9 % (10.0-50.0); Monocytes # (auto) 0.4 uL; Neutrophils # (auto) 10.7 uL; Nucleated Red Blood Cells % 0.1 %
[2018-01-12 04:11] LABS: Eosinophils % (auto) 0.3 % (0.0-7.0); Hematocrit 26.7 % (36.0-46.0); Mean Corpuscular Hemoglobin 34.3 pg (28.0-32.0); Mean Corpuscular Hgb Conc. 33.4 g/dL (32.0-36.0); Mean Corpuscular Volume 102.8 fL (80.0-100.0); Monocytes % (auto) 3.6 % (0.0-12.0); Neutrophils % (auto) 94.1 % (37.0-80.0); Platelet Count (auto) 82 10^3/uL (140-450); Red Blood Cells 2.59 10^6/uL (4.0-5.20); Red Cell Distribution Width 14.2 % (11.8-14.3); White Blood Cell 11.3 10^3/uL (4.4-10.8)
[2018-01-12 04:36] LABS: Albumin 1.8 g/dL (3.4-5.0); BUN/Creatinine Ratio 42.7; Bilirubin, Total 0.3 mg/dL (0.2-1.0); Calcium 7.1 mg/dL (8.5-10.1); Magnesium 2.2 mg/dL (1.6-2.6); Phosphorus 2.6 mg/dL (2.5-4.90); Potassium 4.6 mmol/L (3.5-5.1); Total Protein 3.8 g/dL (6.4-8.2)
[2018-01-12] MEDS: SODIUM CHLORIDE 0.9% 1,000 ML IV SCH (05:25)
[2018-01-12] MEDS: InsuLIN REG 1unit/0.01ml Soln (100units/ml) SC SCH ×4 (06:10→18:00)
[2018-01-12] MEDS: NOREPINEPHRINE 8 MG/250ML KIT 250 ML IV SCH (08:12)
[2018-01-12] MEDS: LEVOFLOXACIN 250MG 50 ML IV SCH (09:02)
[2018-01-12] MEDS: methylPREDNISolone SOD SUCC 40 MG/ML VL IV SCH ×2 (10:00→21:57)
[2018-01-12] MEDS: PANTOPRAZOLE 40 MG/10 ML VIAL IV SCH ×2 (10:00→21:57)
[2018-01-12] MEDS ORDERED: VANCOMYCIN PER PHARMACY 0 MG IV ONE (10:15)
[2018-01-12] MEDS ORDERED: FUROSEMIDE 40 MG/4 ML VIAL IV ONE (10:30)
[2018-01-12] MEDS ORDERED: VANCOMYCIN 1GM/250ML 250 ML IV ONE (10:30)
[2018-01-12] MEDS ORDERED: PHENYLEPHRINE IV 250 ML IV ONE ×2 (10:44→16:34)
[2018-01-12] MEDS: PHENYLEPHRINE INJ 20 MG in SODIUM CHL 0.9% 250 ML IV SCH ×2 (11:02→16:41)
[2018-01-12] MEDS ORDERED: ETOMIDATE (2MG/ML) 20ML VIAL IV ONE ×2 (11:07→11:15)
[2018-01-12] MEDS ORDERED: SUCCINYLCHOLINE CHLORIDE 20 MG/ML 10ML VIAL IV ONE (11:15)
[2018-01-12] MEDS: fentaNYL Drip 2500mCg/250mlNS 250 ML IV SCH (11:16)
[2018-01-12] MEDS ORDERED: VANCOMYCIN PER PHARMACY 0 MG IV SCH (12:00)
[2018-01-12] MEDS: CEFEPIME HYDROCHLORIDE 2 GM in SODIUM CHL 0.9% 50 ML IV SCH (12:00)
[2018-01-12] MEDS: BUDESONIDE (INHALATION) 0.5 MG/2 ML NEB NEB SCH (12:21)
[2018-01-12] MEDS: ACETYLCYSTEINE 20%(200MG/ML) SOL 4ML NEB SCH ×2 (12:24→18:48)
[2018-01-12] MEDS ORDERED: TPN PER PHARMACY IV NR ×11 (20:00)
[2018-01-12] MEDS ORDERED: PRAMIPEXOLE DIHYDROCHLORIDE MO 0.25 MG TAB PO SCH (22:00)
[2018-01-13] VITALS (102 sets, daily range): BP systolic 63–155; BP diastolic 33–121
[2018-01-13] MEDS: ACCU-CHEK COMFORT CURVE STRIP VI SCH ×4 (00:20→18:00)
[2018-01-13] MEDS: InsuLIN REG 1unit/0.01ml Soln (100units/ml) SC SCH ×4 (00:20→18:00)
[2018-01-13] MEDS: metroNIDAZOLE 500MG/100ML 100 ML IV SCH ×3 (00:20→16:07)
[2018-01-13] MEDS: ALBUTEROL SULF 2.5 MG/0.5ML(0.5%) NEB SOLN HHN SCH ×4 (00:25→18:50)
[2018-01-13] MEDS: BUDESONIDE (INHALATION) 0.5 MG/2 ML NEB NEB SCH ×2 (00:25→05:50)
[2018-01-13] MEDS: IPRATROPIUM BROM 0.5 MG/2.5ML INH SOL NEB SCH ×4 (00:25→18:50)
[2018-01-13] MEDS: ACETYLCYSTEINE 20%(200MG/ML) SOL 4ML NEB SCH ×4 (00:27→18:50)
[2018-01-13] MEDS: MIDAZOLAM HCL 1MG/1ML-2 ML VIAL IV PRN ×2 (01:00→07:16)
[2018-01-13] MEDS: PHENYLEPHRINE INJ 20 MG in SODIUM CHL 0.9% 250 ML IV SCH ×3 (03:32→17:01)
[2018-01-13 03:38] LABS: Basophils # (auto) 0 uL; Eosinophils # (auto) 0 uL; Hemoglobin 8.1 g/dL (12.2-16.2); Lymphocytes # (auto) 0.3 uL; Nucleated Red Blood Cells % 0.1 %; Platelet Count (auto) 53 10^3/uL (140-450); Red Cell Distribution Width 14.2 % (11.8-14.3)
[2018-01-13 03:42] LABS: Hematocrit 24.3 % (36.0-46.0); Lymphocytes % (auto) 2.6 % (10.0-50.0); Mean Corpuscular Hemoglobin 33.8 pg (28.0-32.0); Mean Corpuscular Hgb Conc. 33.3 g/dL (32.0-36.0); Mean Corpuscular Volume 101.2 fL (80.0-100.0); Monocytes # (auto) 0.5 uL; Monocytes % (auto) 4.2 % (0.0-12.0); Neutrophils % (auto) 93.2 % (37.0-80.0); White Blood Cell 10.7 10^3/uL (4.4-10.8)
[2018-01-13] MEDS: NOREPINEPHRINE 8 MG/250ML KIT 250 ML IV SCH ×2 (03:44→17:01)
[2018-01-13 04:08] LABS: Albumin 1.5 g/dL (3.4-5.0); BUN/Creatinine Ratio 44.8; Bilirubin, Total 0.4 mg/dL (0.2-1.0); Magnesium 2.3 mg/dL (1.6-2.6); Phosphorus 2.7 mg/dL (2.5-4.90); Potassium 4.7 mmol/L (3.5-5.1); Total Protein 3.7 g/dL (6.4-8.2)
[2018-01-13 04:12] LABS: Partial Thromboplastin Time 27.8 sec (23.78-33.04); Prothrombin Time 10.7 sec (9.27-12.13)
[2018-01-13] MEDS ORDERED: LEVOFLOXACIN 250MG 50 ML IV SCH (09:00)
[2018-01-13] MEDS ORDERED: FUROSEMIDE 40 MG/4 ML VIAL IV ONE (10:00)
[2018-01-13] MEDS ORDERED: VANCOMYCIN 750 MG in D5W 5% 250 ML IV SCH (11:00)
[2018-01-13] MEDS: ALBUMIN 25% 100 ML IV SCH ×2 (11:14→18:00)
[2018-01-13] MEDS: methylPREDNISolone SOD SUCC 40 MG/ML VL IV SCH ×2 (11:15→22:26)
[2018-01-13] MEDS: fentaNYL Drip 2500mCg/250mlNS 250 ML IV SCH (11:16)
[2018-01-13] MEDS: PANTOPRAZOLE 40 MG/10 ML VIAL IV SCH ×2 (11:16→22:26)
[2018-01-13] MEDS: CEFEPIME HYDROCHLORIDE 2 GM in SODIUM CHL 0.9% 50 ML IV SCH (12:00)
[2018-01-13] MEDS: MORPHINE SULFATE 8mg/ml INJ SDV IV PRN (14:54)
[2018-01-13] MEDS ORDERED: ONDANSETRON HCL 4 MG/2 ML VIAL IV PRN (15:00)
[2018-01-13] MEDS ORDERED: ALBUTEROL SULF 2.5 MG/0.5ML(0.5%) NEB SOLN NEB PRN (15:00)
[2018-01-13] MEDS ORDERED: MORPHINE SULFATE 8mg/ml INJ SDV IV PRN (15:00)
[2018-01-13] MEDS: METOPROLOL TARTRATE 1MG/1ML-5ML VIAL IV PRN (15:11)
[2018-01-13] MEDS ORDERED: MICAFUNGIN SODIUM 100 MG in SODIUM CHL 0.9% 100 ML IV ONE (15:15)
[2018-01-13] MEDS ORDERED: NOREPINEPHRINE 8 MG/250ML KIT 250 ML IV ONE (16:52)
[2018-01-13] MEDS ORDERED: PHENYLEPHRINE IV 250 ML IV ONE (16:52)
[2018-01-13] MEDS: FUROSEMIDE 40 MG/4 ML VIAL IV SCH (18:02)
[2018-01-13] MEDS ORDERED: TPN PER PHARMACY IV NR ×11 (20:00)
[2018-01-14] VITALS (123 sets, daily range): BP systolic 76–156; BP diastolic 32–103
[2018-01-14] MEDS: IPRATROPIUM BROM 0.5 MG/2.5ML INH SOL NEB SCH ×4 (00:25→18:59)
[2018-01-14] MEDS: ALBUTEROL SULF 2.5 MG/0.5ML(0.5%) NEB SOLN HHN SCH ×4 (00:25→18:59)
[2018-01-14] MEDS ORDERED: NOREPINEPHRINE 8 MG/250ML KIT 250 ML IV ONE (01:05)
[2018-01-14] MEDS: ALBUMIN 25% 100 ML IV SCH (01:45)
[2018-01-14] MEDS: ACETYLCYSTEINE 20%(200MG/ML) SOL 4ML NEB SCH ×4 (02:12→18:59)
[2018-01-14] MEDS: PHENYLEPHRINE INJ 20 MG in SODIUM CHL 0.9% 250 ML IV SCH ×3 (04:13→12:49)
[2018-01-14 04:31] LABS: Albumin 2.5 g/dL (3.4-5.0); BUN/Creatinine Ratio 50.4; Bilirubin, Total 0.6 mg/dL (0.2-1.0); Calcium 6.7 mg/dL (8.5-10.1); Phosphorus 2.7 mg/dL (2.5-4.90); Potassium 4.6 mmol/L (3.5-5.1); Total Protein 3.9 g/dL (6.4-8.2)
[2018-01-14 05:04] LABS: Eosinophils # (auto) 0 uL; Lymphocytes # (auto) 0.2 uL; Monocytes # (auto) 0.5 uL; Nucleated Red Blood Cells % 0.1 %; Red Blood Cells 1.54 10^6/uL (4.0-5.20); White Blood Cell 8.6 10^3/uL (4.4-10.8)
[2018-01-14 05:05] LABS: Basophils # (auto) 0 uL; Basophils % (auto) 0.1 % (0.0-2.0); Hematocrit 15.6 % (36.0-46.0); Lymphocytes % (auto) 2.8 % (10.0-50.0); Mean Corpuscular Hemoglobin 34.4 pg (28.0-32.0); Mean Corpuscular Hgb Conc. 34.1 g/dL (32.0-36.0); Mean Corpuscular Volume 101.1 fL (80.0-100.0); Monocytes % (auto) 5.7 % (0.0-12.0); Neutrophils # (auto) 7.8 uL; Neutrophils % (auto) 91.4 % (37.0-80.0); Platelet Count (auto) 39 10^3/uL (140-450); Red Cell Distribution Width 13.8 % (11.8-14.3)
[2018-01-14 05:23] LABS: Hemoglobin 5.3 g/dL (12.2-16.2)
[2018-01-14] MEDS: FUROSEMIDE 40 MG/4 ML VIAL IV SCH ×2 (06:00→18:20)
[2018-01-14] MEDS: ACCU-CHEK COMFORT CURVE STRIP VI SCH ×4 (06:15→18:20)
[2018-01-14] MEDS: InsuLIN REG 1unit/0.01ml Soln (100units/ml) SC SCH ×4 (06:15→18:21)
[2018-01-14] MEDS: fentaNYL Drip 2500mCg/250mlNS 250 ML IV SCH (07:55)
[2018-01-14] MEDS: metroNIDAZOLE 500MG/100ML 100 ML IV SCH ×3 (08:13→16:55)
[2018-01-14] MEDS: NOREPINEPHRINE 8 MG/250ML KIT 250 ML IV SCH ×2 (12:50→21:35)
[2018-01-14] MEDS ORDERED: LIDOCAINE 1% (LOCAL ANESTH.) PF 5ml SDV ONE (13:49)
[2018-01-14] MEDS: PANTOPRAZOLE 40 MG/10 ML VIAL IV SCH ×2 (14:32→22:00)
[2018-01-14] MEDS: methylPREDNISolone SOD SUCC 40 MG/ML VL IV SCH (14:33)
[2018-01-14] MEDS: MICAFUNGIN SODIUM 100 MG in SODIUM CHL 0.9% 100 ML IV SCH (14:42)
[2018-01-14] MEDS: MIDAZOLAM HCL 1MG/1ML-2 ML VIAL IV PRN (14:42)
[2018-01-14] MEDS: CEFEPIME HYDROCHLORIDE 2 GM in SODIUM CHL 0.9% 50 ML IV SCH (15:59)
[2018-01-14] MEDS ORDERED: TPN PER PHARMACY IV NR ×11 (20:00)
[2018-01-15] VITALS (106 sets, daily range): BP systolic 81–147; BP diastolic 27–103
[2018-01-15] MEDS: ALBUTEROL SULF 2.5 MG/0.5ML(0.5%) NEB SOLN HHN SCH ×4 (00:09→18:57)
[2018-01-15] MEDS: IPRATROPIUM BROM 0.5 MG/2.5ML INH SOL NEB SCH ×4 (00:09→18:56)
[2018-01-15] MEDS: ACETYLCYSTEINE 20%(200MG/ML) SOL 4ML NEB SCH ×2 (00:09→06:40)
[2018-01-15] MEDS: MIDAZOLAM HCL 1MG/1ML-2 ML VIAL IV PRN (03:46)
[2018-01-15 03:51] LABS: Hematocrit 31.6 % (36.0-46.0); Hemoglobin 10.7 g/dL (12.2-16.2)
[2018-01-15 03:53] LABS: Mean Corpuscular Hemoglobin 32.5 pg (28.0-32.0); Mean Corpuscular Volume 95.4 fL (80.0-100.0); Platelet Count (auto) 48 10^3/uL (140-450); Red Blood Cells 3.31 10^6/uL (4.0-5.20); Red Cell Distribution Width 15.8 % (11.8-14.3); White Blood Cell 13.4 10^3/uL (4.4-10.8)
[2018-01-15 04:13] LABS: Basophils % (manual) 0 (0.0-2.0); Blast Cells 0; Eosinophils % (manual) 0 (0-7); Promyelocytes % 0; Reactive Lymphocytes 0
[2018-01-15 04:16] LABS: Albumin 2.5 g/dL (3.4-5.0); BUN/Creatinine Ratio 58.3; Bilirubin, Total 0.8 mg/dL (0.2-1.0); Calcium 6.9 mg/dL (8.5-10.1); Magnesium 1.9 mg/dL (1.6-2.6); Phosphorus 3.5 mg/dL (2.5-4.90); Potassium 4.9 mmol/L (3.5-5.1)
[2018-01-15 04:42] LABS: Band Neutrophils % (manual) 19; Lymphocytes % (manual) 8 (10.0-50.0); Metamyelocytes % 3; Monocytes % (manual) 9 (0-12); Myelocytes % 1
[2018-01-15] MEDS: InsuLIN REG 1unit/0.01ml Soln (100units/ml) SC SCH ×4 (08:00→18:00)
[2018-01-15] MEDS: fentaNYL Drip 2500mCg/250mlNS 250 ML IV SCH (08:09)
[2018-01-15] MEDS: metroNIDAZOLE 500MG/100ML 100 ML IV SCH ×3 (08:25→15:41)
[2018-01-15] MEDS ORDERED: EPINEPHrine HCL 1 MG/10 ML SYRG ONE ×2 (09:00→09:09)
[2018-01-15] MEDS ORDERED: BENZOCAINE (DENTAL) 20 % SPRAY 60ML MT ONE (09:00)
[2018-01-15] MEDS ORDERED: SODIUM CHLORIDE LOCK 10 ML ONE (09:01)
[2018-01-15] MEDS ORDERED: MIDAZOLAM HCL 5 MG/ML-1ML VIAL ONE (09:01)
[2018-01-15] MEDS ORDERED: diphenhdrAMINE HCL 50 MG/1 ML VL ONE (09:01)
[2018-01-15] MEDS ORDERED: fentaNYL CITRATE 100 MCG/2 ML VL ONE (09:02)
[2018-01-15] MEDS: FUROSEMIDE 40 MG/4 ML VIAL IV SCH (09:30)
[2018-01-15] MEDS: ACCU-CHEK COMFORT CURVE STRIP VI SCH ×4 (09:30→18:00)
[2018-01-15] MEDS: PANTOPRAZOLE 40 MG/10 ML VIAL IV SCH ×2 (09:35→22:10)
[2018-01-15] MEDS: MICAFUNGIN SODIUM 100 MG in SODIUM CHL 0.9% 100 ML IV SCH (09:35)
[2018-01-15] MEDS: PHENYLEPHRINE INJ 20 MG in SODIUM CHL 0.9% 250 ML IV SCH ×3 (10:00→20:36)
[2018-01-15] MEDS ORDERED: PROPOFOL 100 ML IV SCH (10:16)
[2018-01-15] MEDS: CEFEPIME HYDROCHLORIDE 2 GM in SODIUM CHL 0.9% 50 ML IV SCH (11:53)
[2018-01-15] MEDS: NOREPINEPHRINE 8 MG/250ML KIT 250 ML IV SCH (15:26)
[2018-01-15] MEDS ORDERED: FUROSEMIDE 40 MG/4 ML VIAL IV SCH (18:00)
[2018-01-15] MEDS ORDERED: METOPROLOL TARTRATE 1MG/1ML-5ML VIAL IV PRN (18:00)
[2018-01-15] MEDS: FUROSEMIDE 20 MG/2 ML VIAL IV SCH (18:09)
[2018-01-15] MEDS ORDERED: TPN PER PHARMACY IV NR ×12 (20:00)
[2018-01-16] VITALS (106 sets, daily range): BP systolic 65–145; BP diastolic 28–100
[2018-01-16] MEDS: PHENYLEPHRINE IV 250 ML IV ONE ×2 (00:33→00:51)
[2018-01-16] MEDS ORDERED: AMIODARONE HCL 150 MG in D5W 5% 100 ML IV ONE (00:45)
[2018-01-16] MEDS ORDERED: ALBUMIN 25% 100 ML IV ONE (00:45)
[2018-01-16] MEDS ORDERED: AMIODARONE HCL 900 MG in DEXTROSE 500 ML IV SCH (00:50)
[2018-01-16] MEDS: metroNIDAZOLE 500MG/100ML 100 ML IV SCH ×4 (01:01→23:18)
[2018-01-16] MEDS ORDERED: AMIODARONE HCL 900 MG IV ONE (01:34)
[2018-01-16] MEDS ORDERED: AMIODARONE HCL (50 MG/ ML) 3 ML VIAL IV ONE (01:34)
[2018-01-16] MEDS ORDERED: CALCIUM GLUC 4.65meq/50ml D5AE 0 ML IV ONE (03:53)
[2018-01-16] MEDS ORDERED: SODIUM BICARBONATE 8.4 % INJ 50ML VIAL IV ONE ×3 (03:54→21:45)
[2018-01-16 03:59] LABS: Hemoglobin 11.3 g/dL (12.2-16.2)
[2018-01-16 04:02] LABS: Hematocrit 34.7 % (36.0-46.0); Mean Corpuscular Hemoglobin 32.9 pg (28.0-32.0); Mean Corpuscular Hgb Conc. 32.5 g/dL (32.0-36.0); Mean Corpuscular Volume 101.4 fL (80.0-100.0); Platelet Count (auto) 64 10^3/uL (140-450); Red Blood Cells 3.42 10^6/uL (4.0-5.20); Red Cell Distribution Width 15.9 % (11.8-14.3)
[2018-01-16 04:19] LABS: Basophils % (manual) 0 (0.0-2.0); Blast Cells 0; Eosinophils % (manual) 0 (0-7); Reactive Lymphocytes 0
[2018-01-16 04:21] LABS: Albumin 2.7 g/dL (3.4-5.0); BUN/Creatinine Ratio 59.2; Bilirubin, Total 1.1 mg/dL (0.2-1.0); Calcium 6.7 mg/dL (8.5-10.1); Magnesium 2.2 mg/dL (1.6-2.6); Phosphorus 4.3 mg/dL (2.5-4.90); Total Protein 4.4 g/dL (6.4-8.2)
[2018-01-16 04:41] LABS: Potassium 5.7 mmol/L (3.5-5.1)
[2018-01-16] MEDS: PHENYLEPHRINE INJ 20 MG in SODIUM CHL 0.9% 250 ML IV SCH ×2 (04:49→06:22)
[2018-01-16 05:34] LABS: Band Neutrophils % (manual) 21; Lymphocytes % (manual) 6 (10.0-50.0); Metamyelocytes % 5; Monocytes % (manual) 13 (0-12); Myelocytes % 5; Promyelocytes % 1
[2018-01-16 05:43] LABS: White Blood Cell 10.7 10^3/uL (4.4-10.8)
[2018-01-16] MEDS: IPRATROPIUM BROM 0.5 MG/2.5ML INH SOL NEB SCH ×4 (05:57→18:46)
[2018-01-16] MEDS: ALBUTEROL SULF 2.5 MG/0.5ML(0.5%) NEB SOLN HHN SCH ×4 (05:58→18:47)
[2018-01-16] MEDS: ACCU-CHEK COMFORT CURVE STRIP VI SCH ×5 (06:00→23:20)
[2018-01-16] MEDS: InsuLIN REG 1unit/0.01ml Soln (100units/ml) SC SCH ×5 (06:00→23:20)
[2018-01-16] MEDS: FUROSEMIDE 20 MG/2 ML VIAL IV SCH ×2 (07:05→18:03)
[2018-01-16] MEDS: PHENYLEPHRINE INJ 80 MG in SODIUM CHL 0.9% 250 ML IV SCH (09:58)
[2018-01-16] MEDS: PANTOPRAZOLE 40 MG/10 ML VIAL IV SCH ×2 (09:58→21:09)
[2018-01-16] MEDS: FLUCONAZOLE 200MG/100ML 100 ML IV SCH (09:58)
[2018-01-16] MEDS: AMIODARONE HCL 900 MG in DEXTROSE 500 ML IV SCH (11:00)
[2018-01-16] MEDS: fentaNYL Drip 2500mCg/250mlNS 250 ML IV SCH (11:16)
[2018-01-16] MEDS: CEFEPIME HYDROCHLORIDE 2 GM in SODIUM CHL 0.9% 50 ML IV SCH (11:44)
[2018-01-16] MEDS: NOREPINEPHRINE 8 MG/250ML KIT 250 ML IV SCH (14:00)
[2018-01-16] MEDS ORDERED: TPN PER PHARMACY IV NR ×11 (20:00)
[2018-01-16] MEDS: ACETAMINOPHEN 650 MG RECT SUPP PR PRN (21:09)
[2018-01-16] MEDS ORDERED: VANCOMYCIN PER PHARMACY 0 MG IV SCH (23:00)
[2018-01-16] MEDS: VASOPRESSIN 50 UNITS in D5W 5% 247.5 ML IV SCH (23:00)
[2018-01-17] VITALS (97 sets, daily range): BP systolic 92–141; BP diastolic 42–80
[2018-01-17] MEDS ORDERED: VANCOMYCIN 1GM/250ML 250 ML IV ONE
[2018-01-17] MEDS: IPRATROPIUM BROM 0.5 MG/2.5ML INH SOL NEB SCH ×4 (00:07→18:26)
[2018-01-17] MEDS: ALBUTEROL SULF 2.5 MG/0.5ML(0.5%) NEB SOLN HHN SCH ×4 (00:07→18:26)
[2018-01-17] MEDS: fentaNYL Drip 2500mCg/250mlNS 250 ML IV SCH (00:37)
[2018-01-17] MEDS ORDERED: PHENYLEPHRINE HCL 10 MG/ML VL ONE ×2 (02:51→02:54)
[2018-01-17] MEDS: ACETAMINOPHEN 650 MG RECT SUPP PR PRN (03:07)
[2018-01-17 04:48] LABS: Potassium 5.3 mmol/L (3.5-5.1)
[2018-01-17 04:49] LABS: BUN/Creatinine Ratio 60.7; Bilirubin, Total 1.3 mg/dL (0.2-1.0); Calcium 6.8 mg/dL (8.5-10.1); Magnesium 2.1 mg/dL (1.6-2.6); Phosphorus 4.7 mg/dL (2.5-4.90); Total Protein 3.4 g/dL (6.4-8.2)
[2018-01-17] MEDS: InsuLIN REG 1unit/0.01ml Soln (100units/ml) SC SCH ×4 (05:26→23:56)
[2018-01-17] MEDS: ACCU-CHEK COMFORT CURVE STRIP VI SCH ×4 (05:26→23:56)
[2018-01-17] MEDS: FUROSEMIDE 20 MG/2 ML VIAL IV SCH ×2 (05:26→18:02)
[2018-01-17] MEDS: AMIODARONE HCL 900 MG in DEXTROSE 500 ML IV SCH (06:50)
[2018-01-17] MEDS: metroNIDAZOLE 500MG/100ML 100 ML IV SCH ×3 (07:59→23:58)
[2018-01-17 09:06] LABS: Hematocrit 35.6 % (36.0-46.0); Hemoglobin 11.8 g/dL (12.2-16.2); Mean Corpuscular Hemoglobin 32.2 pg (28.0-32.0); Mean Corpuscular Hgb Conc. 33.1 g/dL (32.0-36.0); Mean Corpuscular Volume 97.2 fL (80.0-100.0); Platelet Count (auto) 62 10^3/uL (140-450); Red Blood Cells 3.66 10^6/uL (4.0-5.20); Red Cell Distribution Width 15.6 % (11.8-14.3)
[2018-01-17 09:10] LABS: Basophils % (manual) 0 (0.0-2.0); Blast Cells 0; Metamyelocytes % 0; Myelocytes % 0; Promyelocytes % 0; Reactive Lymphocytes 0
[2018-01-17 09:13] LABS: Albumin 1.8 g/dL (3.4-5.0); Calcium 6.8 mg/dL (8.5-10.1); Potassium 5.5 mmol/L (3.5-5.1)
[2018-01-17 09:17] LABS: Bilirubin, Total 1.4 mg/dL (0.2-1.0); Total Protein 3.4 g/dL (6.4-8.2)
[2018-01-17 09:29] LABS: BUN/Creatinine Ratio 59.2
[2018-01-17] MEDS: FLUCONAZOLE 200MG/100ML 100 ML IV SCH (09:56)
[2018-01-17] MEDS: PANTOPRAZOLE 40 MG/10 ML VIAL IV SCH ×2 (09:57→21:30)
[2018-01-17 11:07] LABS: Band Neutrophils % (manual) 2; Eosinophils % (manual) 1 (0-7); Lymphocytes % (manual) 12 (10.0-50.0); Monocytes % (manual) 5 (0-12); White Blood Cell 14.5 10^3/uL (4.4-10.8)
[2018-01-17] MEDS: NOREPINEPHRINE 8 MG/250ML KIT 250 ML IV SCH (11:16)
[2018-01-17] MEDS: PHENYLEPHRINE INJ 80 MG in SODIUM CHL 0.9% 250 ML IV SCH ×2 (11:30→19:30)
[2018-01-17] MEDS ORDERED: SODIUM POLYSTYRENE SULF 15GM/60ML SUSP PR ONE (12:15)
[2018-01-17] MEDS: CEFEPIME HYDROCHLORIDE 2 GM in SODIUM CHL 0.9% 50 ML IV SCH (12:32)
[2018-01-17] MEDS ORDERED: SODIUM BICARBONATE 8.4 % INJ 50ML VIAL IV STA (14:16)
[2018-01-17 19:34] LABS: BUN/Creatinine Ratio 63.8; Calcium 6.5 mg/dL (8.5-10.1); Potassium 4.5 mmol/L (3.5-5.1)
[2018-01-17] MEDS ORDERED: TPN PER PHARMACY IV NR ×9 (20:00)
[2018-01-17] MEDS: VASOPRESSIN 50 UNITS in D5W 5% 247.5 ML IV SCH (23:00)
[2018-01-17] MEDS: VANCOMYCIN 1GM/250ML 250 ML IV SCH (23:03)
[2018-01-18] VITALS (98 sets, daily range): BP systolic 69–157; BP diastolic 39–91
[2018-01-18] MEDS: IPRATROPIUM BROM 0.5 MG/2.5ML INH SOL NEB SCH ×3 (00:05→19:04)
[2018-01-18] MEDS: ALBUTEROL SULF 2.5 MG/0.5ML(0.5%) NEB SOLN HHN SCH ×3 (00:05→19:04)
[2018-01-18] MEDS: NOREPINEPHRINE 8 MG/250ML KIT 250 ML IV SCH ×2 (01:16→23:07)
[2018-01-18 04:25] LABS: Hemoglobin 11.7 g/dL (12.2-16.2)
[2018-01-18 04:28] LABS: Hematocrit 35.4 % (36.0-46.0); Mean Corpuscular Hemoglobin 32.4 pg (28.0-32.0); Mean Corpuscular Hgb Conc. 33.1 g/dL (32.0-36.0); Mean Corpuscular Volume 97.6 fL (80.0-100.0); Platelet Count (auto) 54 10^3/uL (140-450); Red Blood Cells 3.62 10^6/uL (4.0-5.20); Red Cell Distribution Width 15.5 % (11.8-14.3)
[2018-01-18 04:49] LABS: Albumin 1.5 g/dL (3.4-5.0); BUN/Creatinine Ratio 62.6; Band Neutrophils % (manual) 0; Basophils % (manual) 0 (0.0-2.0); Bilirubin, Total 1.8 mg/dL (0.2-1.0); Blast Cells 0; Calcium 6.9 mg/dL (8.5-10.1); Eosinophils % (manual) 0 (0-7); Magnesium 2.1 mg/dL (1.6-2.6); Metamyelocytes % 0; Myelocytes % 0; Phosphorus 5.2 mg/dL (2.5-4.90); Potassium 4.7 mmol/L (3.5-5.1); Pre Albumin 11.2 mg/dL (20.0-40.0); Promyelocytes % 0; Reactive Lymphocytes 0; Total Protein 3.2 g/dL (6.4-8.2)
[2018-01-18] MEDS: PHENYLEPHRINE INJ 80 MG in SODIUM CHL 0.9% 250 ML IV SCH ×2 (05:10→11:46)
[2018-01-18] MEDS ORDERED: SODIUM BICARBONATE 8.4 % INJ 50ML VIAL IV ONE ×2 (05:35→05:45)
[2018-01-18] MEDS: FUROSEMIDE 20 MG/2 ML VIAL IV SCH (06:00)
[2018-01-18] MEDS: InsuLIN REG 1unit/0.01ml Soln (100units/ml) SC SCH ×3 (06:00→18:00)
[2018-01-18] MEDS: ACCU-CHEK COMFORT CURVE STRIP VI SCH ×3 (06:03→18:00)
[2018-01-18] MEDS: AMIODARONE HCL 900 MG in DEXTROSE 500 ML IV SCH ×2 (06:50→10:53)
[2018-01-18] MEDS: metroNIDAZOLE 500MG/100ML 100 ML IV SCH ×2 (08:07→18:03)
[2018-01-18 08:34] LABS: Lymphocytes % (manual) 8 (10.0-50.0); Monocytes % (manual) 19 (0-12)
[2018-01-18] MEDS: PANTOPRAZOLE 40 MG/10 ML VIAL IV SCH ×2 (09:53→21:45)
[2018-01-18] MEDS: FLUCONAZOLE 200MG/100ML 100 ML IV SCH (09:53)
[2018-01-18 11:21] LABS: White Blood Cell 12.1 10^3/uL (4.4-10.8)
[2018-01-18] MEDS: CEFEPIME HYDROCHLORIDE 2 GM in SODIUM CHL 0.9% 50 ML IV SCH (12:20)
[2018-01-18] MEDS ORDERED: FUROSEMIDE INJECTION 500 MG in SODIUM CHL 0.9% 450 ML IV SCH (13:00)
[2018-01-18] MEDS: ALBUMIN 25% 100 ML IV SCH ×2 (14:23→15:42)
[2018-01-18] MEDS: ESMOLOL HCL-NS 10MG/ML 250 ML IV SCH ×2 (14:23→20:30)
[2018-01-18] MEDS: FUROSEMIDE INJECTION 500 MG in D5W 5% 450 ML IV SCH (17:00)
[2018-01-18] MEDS: fentaNYL Drip 2500mCg/250mlNS 250 ML IV SCH (18:04)
[2018-01-18] MEDS ORDERED: TPN PER PHARMACY IV NR ×9 (20:00)
[2018-01-18] MEDS ORDERED: VASOPRESSIN 20 UNIT/ML ONE (21:13)
[2018-01-18] MEDS: VASOPRESSIN 50 UNITS in D5W 5% 247.5 ML IV SCH (23:00)
[2018-01-18] MEDS: VANCOMYCIN 1GM/250ML 250 ML IV SCH (23:06)
[2018-01-19] VITALS (75 sets, daily range): BP systolic 39–145; BP diastolic 27–65
[2018-01-19] MEDS: ALBUTEROL SULF 2.5 MG/0.5ML(0.5%) NEB SOLN HHN SCH ×4 (00:14→18:36)
[2018-01-19] MEDS: IPRATROPIUM BROM 0.5 MG/2.5ML INH SOL NEB SCH ×4 (00:14→18:36)
[2018-01-19] MEDS: metroNIDAZOLE 500MG/100ML 100 ML IV SCH ×3 (01:49→17:03)
[2018-01-19] MEDS: InsuLIN REG 1unit/0.01ml Soln (100units/ml) SC SCH ×3 (02:43→18:29)
[2018-01-19] MEDS: ACCU-CHEK COMFORT CURVE STRIP VI SCH ×3 (02:44→18:29)
[2018-01-19] MEDS: ESMOLOL HCL-NS 10MG/ML 250 ML IV SCH ×2 (03:32→09:02)
[2018-01-19 04:36] LABS: Albumin 2.1 g/dL (3.4-5.0); BUN/Creatinine Ratio 54.7; Calcium 6.8 mg/dL (8.5-10.1); Magnesium 2.4 mg/dL (1.6-2.6); Phosphorus 6.2 mg/dL (2.5-4.90); Total Protein 3.2 g/dL (6.4-8.2)
[2018-01-19] MEDS: NOREPINEPHRINE 8 MG/250ML KIT 250 ML IV SCH ×3 (09:01→22:09)
[2018-01-19] MEDS: PANTOPRAZOLE 40 MG/10 ML VIAL IV SCH ×2 (09:53→22:08)
[2018-01-19] MEDS: FLUCONAZOLE 200MG/100ML 100 ML IV SCH (10:00)
[2018-01-19] MEDS: fentaNYL Drip 2500mCg/250mlNS 250 ML IV SCH (13:00)
[2018-01-19] MEDS: CEFEPIME HYDROCHLORIDE 2 GM in SODIUM CHL 0.9% 50 ML IV SCH (13:29)
[2018-01-19] MEDS: FUROSEMIDE INJECTION 500 MG in D5W 5% 450 ML IV SCH (17:03)
[2018-01-19] MEDS: PHENYLEPHRINE INJ 80 MG in D5W 5% 250 ML IV SCH (17:05)
[2018-01-19] MEDS ORDERED: AMINO ACID INFUSION IN D10W 1,000 ML IV NR (20:00)
[2018-01-19] MEDS: VANCOMYCIN 1GM/250ML 250 ML IV SCH (22:43)
[2018-01-19] MEDS: VASOPRESSIN 50 UNITS in D5W 5% 247.5 ML IV SCH (23:00)
[2018-01-20] VITALS (27 sets, daily range): BP systolic 64–121; BP diastolic 30–43
[2018-01-20] MEDS: ALBUTEROL SULF 2.5 MG/0.5ML(0.5%) NEB SOLN HHN SCH ×2 (00:11→06:27)
[2018-01-20] MEDS: IPRATROPIUM BROM 0.5 MG/2.5ML INH SOL NEB SCH ×2 (00:11→06:27)
[2018-01-20] MEDS: ACCU-CHEK COMFORT CURVE STRIP VI SCH ×2 (00:23→06:31)
[2018-01-20] MEDS: metroNIDAZOLE 500MG/100ML 100 ML IV SCH (00:23)
[2018-01-20] MEDS: PHENYLEPHRINE INJ 80 MG in D5W 5% 250 ML IV SCH (02:01)
[2018-01-20] MEDS: InsuLIN REG 1unit/0.01ml Soln (100units/ml) SC SCH ×2 (06:00)
[2018-01-20 07:06] LABS: Alanine Aminotransferase 2715 U/L (13-56); Albumin 1.6 g/dL (3.4-5.0); Alkaline Phosphatase 194 U/L (45-117); Anion Gap 18 (5-15); BUN/Creatinine Ratio 47.9; Bilirubin, Total 7.1 mg/dL (0.2-1.0); Calcium 7.3 mg/dL (8.5-10.1); Carbon Dioxide 17 mmol/L (21-32); Chloride 92 mmol/L (98-107); GFR African American 29 mL/min; GFR Non-African American 24 mL/min; Glucose 122 mg/dL (74-106); Magnesium 2.4 mg/dL (1.6-2.6); Sodium 127 mmol/L (136-145); Total Protein 2.8 g/dL (6.4-8.2)
[2018-01-20 07:10] LABS: Blood Urea Nitrogen 103 mg/dL (7-18); Potassium 6.6 mmol/L (3.5-5.1)
[2018-01-20 10:04] LABS: Aspartate Aminotransferase > 10000 U/L (15-37)
[2018-01-21] MEDS ORDERED: PHENYLEPHRINE INJ 80 MG in SODIUM CHL 0.9% 250 ML IV SCH (17:55)
== END 2018-01-20 14:00 | disposition expired | DRG 853 ==
LOC: EDBD 01:07 → ER 01:16 → OVERFLOW 01:17 → WEST WING 11:35 → ICU WEST 16:50
PROVIDERS: ADMIT Nurse Practitioner Family; ATTEND Internal Medicine
PROC: 0DB70ZX Excision of Stomach, Pylorus, Open Approach, Diagnostic (ICD-10-PCS; 2017-12-30)
PROC: 0DQ60ZZ Repair Stomach, Open Approach (ICD-10-PCS; principal; 2017-12-30 19:07)
PROC: 5A1955Z Respiratory Ventilation, Greater than 96 Consecutive Hours (ICD-10-PCS; 2018-01-01)
PROC: 0BH17EZ Insertion of Endotracheal Airway into Trachea, Via Natural or Artificial Opening (ICD-10-PCS; 2018-01-01)
PROC: 5A09357 Assistance with Respiratory Ventilation, Less than 24 Consecutive Hours, Continuous Positive Airway Pressure (ICD-10-PCS; 2018-01-03)
PROC: 5A09457 Assistance with Respiratory Ventilation, 24-96 Consecutive Hours, Continuous Positive Airway Pressure (ICD-10-PCS; 2018-01-05)
PROC: 5A09357 Assistance with Respiratory Ventilation, Less than 24 Consecutive Hours, Continuous Positive Airway Pressure (ICD-10-PCS; 2018-01-05)
PROC: 0W993ZZ Drainage of Right Pleural Cavity, Percutaneous Approach (ICD-10-PCS; 2018-01-07)
PROC: 5A09357 Assistance with Respiratory Ventilation, Less than 24 Consecutive Hours, Continuous Positive Airway Pressure (ICD-10-PCS; 2018-01-11)
PROC: 0W993ZZ Drainage of Right Pleural Cavity, Percutaneous Approach (ICD-10-PCS; 2018-01-13)
PROC: 30233N1 Transfusion of Nonautologous Red Blood Cells into Peripheral Vein, Percutaneous Approach (ICD-10-PCS; 2018-01-14)
PROC: 0DJ08ZZ Inspection of Upper Intestinal Tract, Via Natural or Artificial Opening Endoscopic (ICD-10-PCS; 2018-01-15)
PROC: 5A12012 Performance of Cardiac Output, Single, Manual (ICD-10-PCS; 2018-01-16)
DX: A41.9 Sepsis, unspecified organism (principal); K63.1 Perforation of intestine (nontraumatic); D65 Disseminated intravascular coagulation [defibrination syndrome]; J96.01 Acute respiratory failure with hypoxia; E43 Unspecified severe protein-calorie malnutrition; K27.5 Chronic or unspecified peptic ulcer, site unspecified, with perforation; K72.00 Acute and subacute hepatic failure without coma; N17.0 Acute kidney failure with tubular necrosis; K50.111 Crohn's disease of large intestine with rectal bleeding; E83.39 Other disorders of phosphorus metabolism; J44.0 Chronic obstructive pulmonary disease with (acute) lower respiratory infection; R65.21 Severe sepsis with septic shock; J18.9 Pneumonia, unspecified organism; K65.9 Peritonitis, unspecified; B37.49 Other urogenital candidiasis; J44.1 Chronic obstructive pulmonary disease with (acute) exacerbation; E03.9 Hypothyroidism, unspecified; Y95 Nosocomial condition; D64.9 Anemia, unspecified; E05.90 Thyrotoxicosis, unspecified without thyrotoxic crisis or storm; E78.5 Hyperlipidemia, unspecified; E83.42 Hypomagnesemia; E87.5 Hyperkalemia; F17.200 Nicotine dependence, unspecified, uncomplicated; I11.0 Hypertensive heart disease with heart failure; I48.0 Paroxysmal atrial fibrillation; I50.9 Heart failure, unspecified; I70.0 Atherosclerosis of aorta; K29.70 Gastritis, unspecified, without bleeding; K59.00 Constipation, unspecified; K66.0 Peritoneal adhesions (postprocedural) (postinfection); K66.8 Other specified disorders of peritoneum; N99.0 Postprocedural (acute) (chronic) kidney failure; Z66 Do not resuscitate; T46.2X5A Adverse effect of other antidysrhythmic drugs, initial encounter; Z79.82 Long term (current) use of aspirin; Z79.899 Other long term (current) drug therapy; Z88.0 Allergy status to penicillin
CPT/HCPCS: 10022; 36415; 36600; 51702; 71045; 74021; 74177; 76604; 76775; 76942; 80048; 80053; 80076; 80162; 80202; 81001; 82040; 82140; 82150; 82270; 82570; 82805; 82962; 83010; 83605; 83615; 83690; 83735; 83880; 84100; 84132; 84300; 84478; 84484; 85007; 85025; 85027; 85384; 85610; 85730; 86850; 86900; 86901; 86920; 87040; 87070; 87075; 87081; 87086; 87205; 87493; 89051; 92610; 93005; 93306; 94002; 94003; 94640; 94660; 94667; 94668; 96361; 96374; 96375; 97110; 97163; 97530; C9113; J0153; J0330; J0610; J1450; J1815; J1885; J2248; J2250; J2270; J2405; J3480; J3490; J7060; J7131; P9047